=== PATIENT | male | born 1945 | race Caucasian/White ===

== ENCOUNTER 2021-01-10 12:46 | Emergency (ER) | payer MEDICARE, OTHER, SELFPAY ==
[2021-01-10 13:15] VITALS: BP 118/69; PULSE 56; RESP 18; TEMP 36.6; O2SAT 99; BMI 31.9
--- NOTE | 2021-01-10 13:16 | CT_ITS ---
PROCEDURE: CT THORACIC SPINE WO CON CLINICAL HISTORY: pain COMPARISON: No exams were available for comparison TECHNIQUE: Axial images obtained with sagittal and coronal reformats. All CT scans at the facility use one or more dose reduction, viz: automated exposure control, ma/kV adjustment per patient size (including targeted exams where dose is matched to indication, i.e. head), or iterative reconstruction technique. FINDINGS: Normal alignment. No acute fracture or dislocation is evident. No lytic or blastic change. There is mild multilevel thoracic spondylosis with mild degenerative disc disease. Multilevel bridging osteophytes/syndesmophytes. No bony canal stenosis. No paraspinal mass. Mild thoracic scoliosis convex right. Mild ectasia of the ascending aorta at 4 cm. IMPRESSION: Multilevel thoracic spondylosis as described above. No acute fracture or dislocation. Mild ectasia of the ascending thoracic aorta at 4 cm. Dictated by: Ramon Ribeiro MD 01/10/2021 14:31 Ramon Ribeiro MD in [facility] 01/10/2021 14:31
--- NOTE | 2021-01-10 13:16 | CT_ITS ---
PROCEDURE: CT LUMBAR SPINE WO CON CLINICAL HISTORY: pain COMPARISON: No exams were available for comparison TECHNIQUE: Axial images obtained with sagittal and coronal reformats. All CT scans at the facility use one or more dose reduction, viz: automated exposure control, ma/kV adjustment per patient size (including targeted exams where dose is matched to indication, i.e. head), or iterative reconstruction technique. FINDINGS: There is normal alignment. No acute fracture or dislocation. No lytic or blastic change. L1-L2: Concentric bulging disc. Small anterior osteophyte on the left. L2-L3: Concentric bulging disc with moderate facet and ligamentum hypertrophy. The ligamentum hypertrophic changes are partially calcified on the left. There is bilateral lateral recess narrowing left greater than right . L3-L4: Concentric bulging disc with facet and ligamentum hypertrophic change with bilateral lateral recess narrowing and mild bilateral foraminal narrowing. L4-5: Degenerative disc disease with concentric bulging disc with moderate to severe facet hypertrophic change with moderate bilateral lateral recess narrowing and mild bilateral foraminal narrowing. L5-S1: Severe degenerative disc disease with facet and ligamentum hypertrophy with mild bilateral foraminal narrowing. Anterior osteophytes are present at multiple levels. There is fusion of the SI joints on both sides. There is mild fusiform dilatation of the infrarenal abdominal aorta at the L3 level at 3 cm. IMPRESSION: Multilevel lumbar spondylosis. Please see above for detailed description at each level. No acute fracture or dislocation. 3 cm infrarenal abdominal aortic aneurysm Fusion of the SI joints bilaterally. Dictated by: Ramon Ribeiro MD 01/10/2021 14:50 Ramon Ribeiro MD in [facility] 01/10/2021 14:50
--- NOTE | 2021-01-10 13:24 | PC.NURSE ---
pt in radiology
--- NOTE | 2021-01-10 13:24 | PC.NURSE ---
Pt went to RAD
[2021-01-10 13:28] LABS: Microscopic, Urine URINE MICROSCOPIC (MICROSCOPIC)
[2021-01-10 13:33] LABS: Appearance,Urine CLEAR (Clear); Blood, Urine Negative (Negative); Color,Urine AMBER (Yellow); Glucose,Urine (UA) Negative (Negative); Ketones,Urine TRACE (Negative); Leukocyte Esterase,Urine Negative (Negative); Nitrate,Urine Negative (Negative); Protein,Urine 2+ (Negative); Specific Gravity, Urine >= 1.030 (1.005-1.030)
--- NOTE | 2021-01-10 13:35 | PC.NURSE ---
Spoke with sebastian malin RPH at [facility] he stated that pts allergies are Vanc, Crestor, simvastatin, lisinopril, citalopram, fluoxitine.
[2021-01-10 13:48] LABS: Bilirubin,Urine 1+ (Negative)
[2021-01-10 14:12] LABS: Basophils # 0.1 K/mm3 (0-0.2); Basophils % 0.6 % (0.1-2.0); Eosinophils # 0.2 K/mm3 (0.0-0.4); Eosinophils % 2.5 % (0.1-12.0); Hematocrit 43.9 % (42.0-52.0); Hemoglobin 14.8 g/dL (14.1-18.0); Lymphocytes % 24.1 % (10-50); Mean Corpuscular HGB Conc 33.9 g/dL (31.8-35.4); Mean Corpuscular Hemoglobin 29.7 pg (27.0-31.2); Mean Corpuscular Volume 87.6 fl (80-94); Monocytes # 0.5 K/mm3 (0.1-1.0); Monocytes % 6.7 % (1.7-9.3); Neutrophils # 5.4 K/mm3 (1.8-7.8); Neutrophils % 66.1 % (37.0-80.0); Platelet Count 231 K/mm3 (142-424); Red Blood Count 5.01 M/mm3 (4.60-6.20); Red Cell Distribution Width 15.7 % (11.5-17.5); White Blood Count 8.1 K/mm3 (4.8-10.8)
[2021-01-10 14:23] LABS: Chloride 106 mmol/L (98-107); Potassium 4.2 mmoL/L (3.5-5.1); Sodium 143 mmol/L (136-145)
[2021-01-10 14:25] LABS: Alanine Aminotransferase 13 U/L (12-78); Alkaline Phosphatase 54 U/L (38-126); Aspartate Amino Transferase 29 U/L (17-59); Bilirubin,Total 1.1 mg/dl (0.2-1.3); Blood Urea Nitrogen 25 mg/dl (9-20); Creatinine Clearance Estimated 54 mL/min (50-200); Estimated Glomerular Filt Rate 46 ml/min (>60); GFR (African American) 55 ML/MIN (>60)
[2021-01-10 14:26] LABS: Albumin Level 4.7 g/dl (3.5-5.0); Albumin/Globulin Ratio 1.7 (1.1-1.8); Anion Gap 14.2 mEq/L (5-15); Carbon Dioxide 27 mmol/L (22.0-30.0); Globulin 2.7 g/dL (1.3-3.2); Glucose 109 mg/dl (74-100); Total Protein,Serum 7.4 g/dl (6.3-8.2)
--- NOTE | 2021-01-10 15:34 | PC.NURSE ---
Pt is in room resting
--- NOTE | 2021-01-10 15:48 | HMH.EDBACK ---
ED Disposition Clinical Impression: Strain of lumbar region Qualifiers: Encounter type: initial encounter Qualified Code(s): S39.012A - Strain of muscle, fascia and tendon of lower back, initial encounter Thoracic back pain Qualifiers: Chronicity: acute Back pain laterality: bilateral Qualified Code(s): M54.6 - Pain in thoracic spine Disposition: Home, Self-Care Condition on Discharge: Good Instructions: DI for Low Back Pain Prescriptions: methocarbamoL [Methocarbamol] 750 mg PO QID 7 Days #28 tab Transmission Status: Pending to [facility]/pharmacy #[id number] Referrals: Faraz Skaggs [Primary Care Provider] - - Critical Care Critical Care Time: No Attestation: On 01/10/21, the high probability of a clinically significant, sudden or life threatening deterioration of the following system(s) required my full and direct attention, intervention and personal management. The time I documented below is in addition to time spent performing reported procedures but includes the following listed in this critical care notation. Medical Decision Making - Medical Records Medical records reviewed: Yes: I reviewed the patient's medical records. - Santana Inquiry Pt receiving controlled substance: Yes Santana was queried for this patient: No Reason not queried -: Emergent pt cond-no time Risks and benefits of using a controlled substance: were discussed with pt by me Vital Signs: 01/10/21 13:15 Temperature 97.9 F Temperature Source Oral Pulse Rate [Right Radial] 56 L Respiratory Rate 18 Blood Pressure [Right Arm] 118/69 Blood Pressure Mean [Right Arm] 85 Blood Pressure Source [Right Arm] Automatic Cuff Blood Pressure Position [Right Arm] Supine 02 Sat by Pulse Oximetry 99 Oxygen Delivery Method Room Air - Lab Data Lab Results 01/10/21 12:55: Urine Color Anna, Urine Appearance Clear, Urine pH 6.0, Ur Specific [place] >= 1.030, Urine Protein 2+, Urine Glucose (UA) Negative, Urine Ketones Trace, Urine Blood Negative, Urine Nitrate Negative, Urine Bilirubin 1+ A, Urine Urobilinogen 1.0, Ur Leukocyte Esterase Negative, Urine WBC 3-5, Ur Squamous Epith Cells 3-5 01/10/21 14:02: WBC 8.1, RBC 5.01, Hgb 14.8, Hct 43.9, MCV 87.6, MCH 29.7, MCHC 33.9, RDW 15.7, Plt Count 231, MPV 9.0, Neut % (Auto) 66.1, Lymph % (Auto) 24.1, [place] % (Auto) 6.7, Eos % (Auto) 2.5, Baso % (Auto) 0.6, Neut # (Auto) 5.4, Lymph # (Auto) 2.0, [place] # (Auto) 0.5, Eos # (Auto) 0.2, Baso # (Auto) 0.1 01/10/21 14:02: Sodium 143, Potassium 4.2, Chloride 106, Carbon Dioxide 27, Anion Gap 14.2, BUN 25 H, Creatinine 1.50 H, Estimated Creat Clear 54, Estimated GFR 46 L, Est GFR ( Amer) 55 L, Glucose 109 H, Calcium 10.0, Total Bilirubin 1.1, AST 29, ALT 13, Alkaline Phosphatase 54, Total Protein 7.4, Albumin 4.7, Globulin 2.7, Albumin/Globulin Ratio 1.7 Result diagrams: 01/10/21 14:02 01/10/21 14:02 Orders (Tests/Meds): ED MEDICATIONS Discontinued Medications Generic Name Dose Route Start Last Admin Trade Name Freq PRN Reason Stop Dose Admin Morphine Sulfate 4 mg 01/10/21 13:16 01/10/21 14:09 Morphine 4mg/Ml Syringe IV 01/10/21 13:17 4 mg ONCE ONE Administration Morphine Sulfate 4 mg 01/10/21 15:54 Morphine 4mg/Ml Syringe IV 01/10/21 15:55 ONCE ONE Ondansetron HCl 4 mg 01/10/21 13:16 01/10/21 14:09 Ondansetron 4mg/2ml Vial IV 01/10/21 13:17 4 mg ONCE ONE Administration - CT Data CT Scan: T-Spine, L-Spine Time Received: 15:[address] Reviewed: Yes: I have reviewed the patient's CT results, I have viewed the radiologist's interpretation Findings Narrative: IMPRESSION: Multilevel thoracic spondylosis as described above. No acute fracture or dislocation. Mild ectasia of the ascending thoracic aorta at 4 cm. IMPRESSION: Multilevel lumbar spondylosis. Please see above for detailed description at each level. No acute fracture or dislocation. 3 cm infrarenal abdominal aortic aneurysm Fusion of th
[2021-01-10 16:44] VITALS: BP 127/77; PULSE 65; RESP 18; TEMP 36.8; O2SAT 98
== END 2021-01-10 16:44 | disposition home or self-care (01) ==
PROVIDERS: Emergency Provider Emergency Medicine; PCP Internal Medicine
DX: S39.012A Strain of muscle, fascia and tendon of lower back, initial encounter (principal); W01.0XXA Fall on same level from slipping, tripping and stumbling without subsequent striking against object, initial encounter; Y92.019 Unspecified place in single-family (private) house as the place of occurrence of the external cause; Z86.73 Personal history of transient ischemic attack (TIA), and cerebral infarction without residual deficits
CPT/HCPCS: 72128; 72131; 80053; 81001; 85025; 96367; 96374; 99283; J2405

== ENCOUNTER 2021-04-24 16:11 | Emergency (ER) | payer MEDICARE, OTHER, SELFPAY ==
[2021-04-24 16:14] VITALS: BP 142/67; PULSE 90; RESP 17; TEMP 36.7; O2SAT 100; BMI 28.7
--- NOTE | 2021-04-24 16:26 | ECG_ITS ---
APPROVED REPORT Exam: Resting ECG HR:80 bpm ECG Measurements Heart Rate 80 AXES QRSd 91 QRS -4 QT 389 T 134 QTc 425 Conclusion ATRIAL FIBRILLATION WITH ABERRANT CONDUCTION OR VENTRICULAR PREMATURE COMPLEXES ST DEVIATION AND MODERATE T-WAVE ABNORMALITY, CONSIDER LATERAL ISCHEMIA [-0.1+ mV T-WAVE IN I/aVL/V5/V6] ABNORMAL ECG UNCONFIRMED REPORT Electronically signed by : Emre Grady MD 04/25/2021 07:41:26
--- NOTE | 2021-04-24 16:26 | XR_ITS ---
PROCEDURE INFORMATION: Exam: XR Chest Exam date and time: 04/24/2021 4:26 PM Age: 75 years old Clinical indication: Shortness of breath; Additional info: AMS TECHNIQUE: Imaging protocol: XR of the chest. Views: 1 view. COMPARISON: CT THORACIC SPINE WO CON 01/10/2021 1:26 PM FINDINGS: Lungs: No focal pneumonia or pneumothorax. Pleural spaces: There are no pleural effusions present. Heart/Mediastinum: Heart demonstrates mild diffuse enlargement. Bones/joints: Unremarkable. IMPRESSION: 1. Mild cardiomegaly. 2. No focal pneumonia or pneumothorax.
[2021-04-24 16:31] VITALS: BP 129/72; PULSE 78; RESP 18; O2SAT 99
[2021-04-24 16:40] LABS: Basophils # 0.1 K/mm3 (0-0.2); Basophils % 1.1 % (0.1-2.0); Eosinophils # 0.1 K/mm3 (0.0-0.4); Eosinophils % 0.5 % (0.1-12.0); Hematocrit 40.6 % (42.0-52.0); Hemoglobin 13.8 g/dL (14.1-18.0); Lymphocytes # 1.4 K/mm3 (0.7-4.5); Lymphocytes % 13.6 % (10-50); Mean Corpuscular Hemoglobin 30.4 pg (27.0-31.2); Mean Corpuscular Volume 89.2 fl (80-94); Mean Platelet Volume 8.9 fl (7.4-10.4); Monocytes # 0.9 K/mm3 (0.1-1.0); Monocytes % 8.9 % (1.7-9.3); Neutrophils # 7.8 K/mm3 (1.8-7.8); Neutrophils % 75.8 % (37.0-80.0); Platelet Count 249 K/mm3 (142-424); Red Blood Count 4.55 M/mm3 (4.60-6.20); White Blood Count 10.2 K/mm3 (4.8-10.8)
[2021-04-24 16:41] LABS: Chloride 106 mmol/L (98-107); Sodium 139 mmol/L (136-145)
[2021-04-24 16:42] LABS: Potassium 3.7 mmoL/L (3.5-5.1)
[2021-04-24 16:44] LABS: Alanine Aminotransferase 19 U/L (12-78); Albumin Level 4.1 g/dl (3.5-5.0); Albumin/Globulin Ratio 1.4 (1.1-1.8); Alkaline Phosphatase 46 U/L (38-126); Anion Gap 11.7 mEq/L (5-15); Aspartate Amino Transferase 22 U/L (17-59); Bilirubin,Total 1.1 mg/dl (0.2-1.3); Blood Urea Nitrogen 37 mg/dl (9-20); Carbon Dioxide 25 mmol/L (22.0-30.0); Creatinine Clearance Estimated 51 mL/min (50-200); Estimated Glomerular Filt Rate 39 ml/min (>60); GFR (African American) 48 ML/MIN (>60); Globulin 2.9 g/dL (1.3-3.2)
[2021-04-24 16:45] LABS: Calcium 8.1 mg/dl (8.4-10.2); Glucose 99 mg/dl (74-100)
--- NOTE | 2021-04-24 16:56 | HMH.EDGENADL ---
ED Disposition Clinical Impression: Abdominal pain Qualifiers: Abdominal location: generalized Qualified Code(s): R10.84 - Generalized abdominal pain Disposition: Home, Self-Care Condition on Discharge: Good Instructions: DI for Abdominal Pain-Adult Prescriptions: Dicyclomine HCl [Bentyl 10mg capsule] 10 mg PO TID PRN #15 cap PRN Reason: Cramping Transmission Status: Pending to [facility]/pharmacy #[id number] Referrals: Provider,Referral, [Primary Care Provider] - - Critical Care Critical Care Time: No Attestation: On 04/24/21, the high probability of a clinically significant, sudden or life threatening deterioration of the following system(s) required my full and direct attention, intervention and personal management. The time I documented below is in addition to time spent performing reported procedures but includes the following listed in this critical care notation. Medical Decision Making - Medical Records Medical records reviewed: Yes: I reviewed the patient's medical records. - Santana Inquiry Pt receiving controlled substance: No Vital Signs: 04/24/21 16:14 04/24/21 16:31 04/24/21 17:01 Temperature 98.1 F Temperature Source Oral Pulse Rate 78 66 Pulse Rate [Left Radial] 90 Respiratory Rate 17 18 18 Blood Pressure 129/72 145/74 H Blood Pressure [Right Arm] 142/67 H Blood Pressure Mean 78 82 Blood Pressure Mean [Right Arm] 92 02 Sat by Pulse Oximetry 100 99 100 Oxygen Delivery Method Room Air 04/24/21 17:31 04/24/21 18:01 Temperature Temperature Source Pulse Rate 70 76 Pulse Rate [Left Radial] Respiratory Rate 18 18 Blood Pressure 155/83 H 161/79 H Blood Pressure [Right Arm] Blood Pressure Mean 107 117 Blood Pressure Mean [Right Arm] 02 Sat by Pulse Oximetry 98 98 Oxygen Delivery Method - Lab Data Lab Results 04/24/21 16:12: WBC 10.2, RBC 4.55 L, Hgb 13.8 L, Hct 40.6 L, MCV 89.2, MCH 30.4, MCHC 34.0, RDW 15.0, Plt Count 249, MPV 8.9, Neut % (Auto) 75.8, Lymph % (Auto) 13.6, [place] % (Auto) 8.9, Eos % (Auto) 0.5, Baso % (Auto) 1.1, Neut # (Auto) 7.8, Lymph # (Auto) 1.4, [place] # (Auto) 0.9, Eos # (Auto) 0.1, Baso # (Auto) 0.1 04/24/21 16:12: Sodium 139, Potassium 3.7, Chloride 106, Carbon Dioxide 25, Anion Gap 11.7, BUN 37 H, Creatinine 1.70 H, Estimated Creat Clear 51, Estimated GFR 39 L, Est GFR ( Amer) 48 L, Glucose 99, Calcium 8.1 L, Total Bilirubin 1.1, AST 22, ALT 19, Alkaline Phosphatase 46, Total Protein 7.0, Albumin 4.1, Globulin 2.9, Albumin/Globulin Ratio 1.4 04/24/21 16:12: Troponin I < 0.01 Result diagrams: 04/24/21 16:12 04/24/21 16:12 Orders (Tests/Meds): ED MEDICATIONS Generic Name Dose Route Start Last Admin Trade Name Freq PRN Reason Stop Dose Admin Sodium Chloride 10 ml 04/24/21 16:26 Sodium Chloride 0.9% 10ml Flush Syringe IV 05/24/21 16:25 NEEDED PRN Maintain IV Site ORDERS Category Date Time Status Troponin I Q3H Lab 04/24/21 19:45 Ordered Troponin I Q3H Lab 04/24/21 22:45 Ordered Medical Decision Narrative: ekg by me afib 80, qrs narrow, no st elev reeval 1822 appears well, vss, abd soft, says pain is resolved General Adult HPI - General Chief complaint: PAIN Stated complaint: chest pain Time Seen by Provider: 04/24/21 16:30 Mode of Arrival: Ambulatory Limitations: No Limitations Description of Symptoms (Recalled from ER Triage Doc. by RN): pt to ed c/o generalized pain and weakness. pt states he hurts all over but will not give specific points of origin. pt has no other complaints. - History of Present Illness HPI narrative: c/o abd pain, intermittent, crampy, all over 3 days, resolved now Radiation: non-radiation Severity: moderate Consistency: intermittent Relieving factors: none Exacerbating factors: none Associated symptoms: denies other symptoms Treatments prior to arrival: none - Related Data Previous Rx's Medication Instructions Recorded methocarbamoL [Me
[2021-04-24 17:01] VITALS: BP 145/74; PULSE 66; RESP 18; O2SAT 100
[2021-04-24 17:13] LABS: Troponin I < 0.01 ng/ml (0.00-0.034)
[2021-04-24 17:31] VITALS: BP 155/83; PULSE 70; RESP 18; O2SAT 98
[2021-04-24 18:01] VITALS: BP 161/79; PULSE 76; RESP 18; O2SAT 98
[2021-04-24 18:51] VITALS: BP 161/79; PULSE 84; RESP 20; TEMP 36.9; O2SAT 98
== END 2021-04-24 18:52 | disposition home or self-care (01) ==
PROVIDERS: Emergency Provider Emergency Medicine
DX: R07.9 Chest pain, unspecified (principal); R10.84 Generalized abdominal pain; R53.1 Weakness; Z88.1 Allergy status to other antibiotic agents; Z88.3 Allergy status to other anti-infective agents; Z88.8 Allergy status to other drugs, medicaments and biological substances
CPT/HCPCS: 71045; 80053; 84484; 85025; 93005; 99284

== ENCOUNTER 2021-11-28 14:50 | Emergency (ER) | payer MEDICARE, OTHER, SELFPAY ==
[2021-11-28 15:06] VITALS: BP 144/68; PULSE 64; RESP 18; TEMP 36.9; O2SAT 100; BMI 28.2
--- NOTE | 2021-11-28 15:16 | CT_ITS ---
FINAL REPORT TECHNIQUE: Axial images were obtained from the lung apex to the mid abdomen by computed tomography. Coronal reformatted images were obtained. This study was performed with techniques to keep radiation doses as low as reasonably achievable, (ALARA). Individualized dose reduction techniques using automated exposure control or adjustment of mA and/or kV according to the patient''s size were employed. CLINICAL HISTORY: fall, chest pain FINDINGS: There is no axillary adenopathy. There is no hilar or mediastinal adenopathy. There is cardiomegaly. There are severe coronary artery calcifications. There is no pericardial or pleural effusion. Limited images of the upper abdomen are unremarkable. No suspicious infiltrate or nodule is identified. There is mild dependent atelectasis. There is a calcified granuloma in the left lung base. There is no pneumothorax. IMPRESSION: Mild dependent atelectasis. No pneumothorax. Reviewed, Interpreted and Dictated by Adrian Nixon III, MD Transcribed by Laura García Authenticated and [facility]
--- NOTE | 2021-11-28 15:16 | CT_ITS ---
FINAL REPORT CLINICAL HISTORY: fall, head injury FINDINGS: Axial CT images of the cervical spine were obtained without contrast. Sagittal and coronal reformatted images were also obtained. This study was performed with techniques to keep radiation doses as low as reasonably achievable (ALARA). Individualized dose reduction techniques using automated exposure control or adjustment of mA and/or kV according to the patient''s size were employed. There is no evidence of fracture or dislocation. The bony alignment is normal. There are moderate degenerative changes with multilevel osteophytes and multilevel neural foraminal narrowing. There is no evidence of canal stenosis. No paraspinous soft tissue abnormality is seen. Limited images of the upper thorax are unremarkable. A calcification is noted in the right thyroid lobe. IMPRESSION: No fracture or acute bony abnormality identified. Reviewed, Interpreted and Dictated by Adrian Nixon III, MD Transcribed by Laura García Authenticated and [facility]
--- NOTE | 2021-11-28 15:16 | CT_ITS ---
FINAL REPORT CLINICAL HISTORY: fall, head injury FINDINGS: Axial images of the head were obtained without contrast. Coronal reformatted images were also obtained. This study was performed with techniques to keep radiation doses as low as reasonably achievable (ALARA). Individualized dose reduction techniques using automated exposure control or adjustment of mA and/or kV according to the patient's size were employed. There is generalized age-appropriate atrophy. Periventricular low-attenuation areas are seen consistent with mild chronic ischemic changes. There is left hemisphere encephalomalacia. There is no evidence of intracranial hemorrhage or mass. There is no evidence of acute infarct. There is no evidence of shift of the midline structures. No skull abnormality is seen on the bone window images. IMPRESSION: Atrophy and moderate periventricular chronic ischemic changes. No acute intracranial abnormality identified. Reviewed, Interpreted and Dictated by Adrian Nixon III, MD Transcribed by Laura García Authenticated and [facility]
--- NOTE | 2021-11-28 15:17 | XR_ITS ---
FINAL REPORT CLINICAL HISTORY: fall, pain COMPARISON: 04/24/2021 FINDINGS: A single portable view of the chest was obtained. There is cardiomegaly. The mediastinum is within normal limits. No acute pulmonary abnormality is identified. The bony thorax is intact. IMPRESSION: No active cardiopulmonary disease. Reviewed, Interpreted and Dictated by Adrian Nixon III, MD Transcribed by Laura García Authenticated and [facility]
--- NOTE | 2021-11-28 15:17 | XR_ITS ---
FINAL REPORT CLINICAL HISTORY: fall, pain FINDINGS: SINGLE VIEW PELVIS: A single view of the pelvis was obtained. There is no acute fracture or dislocation. There are mild degenerative changes. There are mild vascular calcifications. IMPRESSION: No acute bony abnormality. Reviewed, Interpreted and Dictated by Adrian Nixon III, MD Transcribed by Laura García Authenticated and [facility]
--- NOTE | 2021-11-28 15:18 | HMH.EDGENADL ---
Discharge Plan Disposition Patient Disposition: Home, Self-Care Condition: Good Prescriptions Prescriptions: No Action dicyclomine 10 MG capsule 10 mg PO TID PRN (Reason: Cramping) Qty: 15 0RF methocarbamol 750 MG tablet 750 mg PO QID 7 Days Qty: 28 0RF Referrals Follow up/Referrals: Provider,Referral, [Primary Care Provider] - See instructions Activity Restrictions/Add. Instructions Additional Instructions/Restrictions: You were evaluated in the emergency department today after a fall. Your laceration was repaired with absorbable sutures. Please keep the area clean and dry. Do not submerge in any water. Take Tylenol at home as needed for pain. Follow-up with your primary care provider over the next 48 hours. Return to the emergency department for any new or worsening symptoms. Clinical Impressions Clinical Impression: Fall from ground level, Contusion of rib on left side Forehead laceration Qualifiers: Encounter type: initial encounter Qualified Code(s): S01.81XA - Laceration without foreign body of other part of head, initial encounter Instructions Patient Instructions: DI for Laceration Repair, DI for Rib Contusion, How to Prevent Falls Discharge ED Provider: Anna Brice General Adult HPI General Chief complaint: Wound/Laceration Stated complaint: AO 11/28@home@1400 lac on forhead Time Seen by Provider: 11/28/21 14:59 Mode of Arrival: Ambulatory Source of Information: Patient and Relative Limitations: No Limitations Description of Symptoms (Recalled from ER Triage Doc. by RN): Pt presents with lac to Lt forehead after tripping and falling on [place] History of Present Illness HPI narrative: This patient is a 76-year-old male with a history of prior CVA presenting with his caregiver for evaluation after a ground-level fall. According to the patient's caregiver, he was walking on the sidewalk when he tripped, striking his face on the ground. Patient currently complains of left-sided head pain and moderate, sharp chest wall pain worse with inspiration. He states that he was not experiencing any chest pain prior to the fall. He did not lose consciousness. He has had no vomiting since then. He is currently at his baseline mental status. He has no vision changes, numbness, tingling, unilateral weakness, shortness of breath, abdominal pain, extremity pain, or other concerns. He was ambulatory after the fall. He is unsure when his last tetanus shot was, however he and his caregiver declined tetanus shot today. He was well prior to the fall. Related Data Previous Rx's Medication Instructions Recorded methocarbamol 750 mg tablet 750 mg PO QID 7 days #28 tabs 01/10/21 dicyclomine 10 mg capsule 10 mg PO TID PRN Cramping #15 caps 04/24/21 Allergies Allergy/AdvReac Type Severity Reaction Status Date / Time lisinopril Allergy Mild Verified 01/10/21 13:44 citalopram Allergy Verified 01/10/21 13:46 fluoxetine [From Prozac] Allergy Verified 01/10/21 13:46 rosuvastatin [From Crestor] Allergy Verified 01/10/21 13:46 simvastatin Allergy Verified 01/10/21 13:46 vancomycin Allergy Verified 01/10/21 13:43 PFSH PFSH Social History Smoking Status: Never smoker alcohol intake: never current occupational status: retired Travel in the last 8 weeks: None ROS Obtained: Yes All systems reviewed & no additional complaints except as documented 14 point review of systems obtained and negative except otherwise mentioned in HPI. Physical Exam General General appearance: alert and in no apparent distress Head Head exam: other (1 cm laceration to the left forehead without significant surrounding swelling) Eye Eye exam: Present normal appearance, PERRL and EOMI ENT ENT exam: Present normal exam and normal oropharynx Neck Neck exam: Present normal inspection; Absent tenderness Chest Chest inspection: Present symmetric chest wall ri
[2021-11-28 16:00] VITALS: BP 139/83; PULSE 53; RESP 20; O2SAT 95
--- NOTE | 2021-11-28 16:10 | ECG_ITS ---
APPROVED REPORT Exam: Resting ECG HR:67 bpm ECG Measurements Heart Rate 67 AXES QRSd 98 QRS -7 QT 430 T 83 QTc 446 Conclusion ATRIAL FIBRILLATION NONSPECIFIC ST & T-WAVE ABNORMALITY ABNORMAL RHYTHM ECG UNCONFIRMED REPORT Electronically signed by : Emre Grady MD 11/29/2021 17:15:11
[2021-11-28 16:30] VITALS: BP 151/77; PULSE 74; RESP 20; O2SAT 98
[2021-11-28 17:00] VITALS: BP 159/102; PULSE 71; RESP 20; O2SAT 95
[2021-11-28 18:19] VITALS: BP 141/76; PULSE 78; RESP 18; TEMP 36.7; O2SAT 97
== END 2021-11-28 18:20 | disposition home or self-care (01) ==
PROVIDERS: Emergency Provider Emergency Medicine
DX: S20.212A Contusion of left front wall of thorax, initial encounter (principal); S01.81XA Laceration without foreign body of other part of head, initial encounter; W18.30XA Fall on same level, unspecified, initial encounter; Y92.480 Sidewalk as the place of occurrence of the external cause
CPT/HCPCS: 12011; 70450; 71045; 71250; 72125; 72170; 93005; 99285

== ENCOUNTER 2022-06-13 17:38 | Emergency (ER) | payer MEDICARE, OTHER, SELFPAY ==
[2022-06-13 17:38] VITALS: BP 146/77; PULSE 85; RESP 18; TEMP 37.1; O2SAT 100; BMI 29.8
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
[2022-06-13 18:01] VITALS: BP 139/81; PULSE 76; O2SAT 100
--- NOTE | 2022-06-13 18:32 | HMH.EDGENADL ---
Discharge Plan Disposition Patient Disposition: Home, Self-Care Chief Complaint: Wound/Laceration Prescriptions Prescriptions: No Action dicyclomine 10 MG capsule 10 mg PO TID PRN (Reason: Cramping) Qty: 15 0RF methocarbamol 750 MG tablet 750 mg PO QID 7 Days Qty: 28 0RF Referrals Follow up/Referrals: Provider,Referral, [Primary Care Provider] - See instructions Activity Restrictions/Add. Instructions Additional Instructions/Restrictions: Return for removal of the meghna within 7 days. Return for headache vomiting or any other concerns within the next 8 hours follow-up with your primary care physician within the next few days Clinical Impressions Clinical Impression: Complex laceration of scalp Instructions Patient Instructions: DI for Laceration Repair Discharge ED Provider: Guillermo Pastrana General Adult HPI General Chief complaint: Wound/Laceration Stated complaint: laceration Time Seen by Provider: 06/13/22 18:00 Mode of Arrival: EMS Source of Information: Spouse Limitations: Language Barrier Description of Symptoms (Recalled from ER Triage Doc. by RN): c/o laceration to right forehead after a board hit him in the head. Pt denies any loc or other injuries at this time. History of Present Illness HPI narrative: 76-year-old male with history of dementia presents with head injury. He ran into a 4 x 4 and has a laceration to his head. No LOC or vomiting per family. Moving all extremities. He apparently is on Eliquis as well. Related Data Previous Rx's Medication Instructions Recorded methocarbamol 750 mg tablet 750 mg PO QID 7 days #28 tabs 01/10/21 dicyclomine 10 mg capsule 10 mg PO TID PRN Cramping #15 caps 04/24/21 Allergies Allergy/AdvReac Type Severity Reaction Status Date / Time lisinopril Allergy Mild Verified 01/10/21 13:44 citalopram Allergy Verified 01/10/21 13:46 fluoxetine [From Prozac] Allergy Verified 01/10/21 13:46 rosuvastatin [From Crestor] Allergy Verified 01/10/21 13:46 simvastatin Allergy Verified 01/10/21 13:46 vancomycin Allergy Verified 01/10/21 13:43 [facility] Disclaimer: The information contained in this section may have been updated after the patient was seen, as this information can be updated by other users. Social History (Updated 11/28/21 @ 20:32 by Anna Brice DO) Smoking Status: Former smoker alcohol intake: never current occupational status: retired Travel in the last 8 weeks: None ROS Obtained: Yes unobtainable due to mental condition Physical Exam General General appearance: alert and in no apparent distress Head Head exam: other (4 cm laceration to forehead no active bleeding) Eye Eye exam: Present PERRL and EOMI ENT ENT exam: Present normal exam and normal oropharynx Neck Neck exam: Present normal inspection; Absent tenderness Chest Chest inspection: Present symmetric chest wall rise Respiratory Respiratory exam: Present normal lung sounds bilaterally; Absent respiratory distress Cardiovascular Cardiovascular exam: Present regular rate and normal rhythm Abdominal Exam Abdominal exam: Present soft; Absent distention, tenderness, guarding, rebound, Sims's sign or tenderness at McBurney's Point Rectal Exam Rectal exam: Present deferred Back Exam Back exam: Present normal inspection Neurological Exam Neurological exam: Present alert and oriented X3 Psychiatric Psychiatric exam: Present normal affect and normal mood Skin Skin exam: Present warm, dry and intact Lymphatic Lymphatic Findings: no adenopathy Medical Decision Making Medical Records Medical records reviewed: Yes I reviewed the patient's medical records. Santana Inquiry Pt receiving controlled substance: No Santana was queried for this patient: No Vital Signs: 06/13/22 17:38 06/13/22 18:01 06/13/22 18:33 Temperature 98.7 F Temperature Source Oral Pulse Rate 76 85 Pulse Rate [Left Radial] 85 Respiratory Rate 18 20 Blood Pressur
[2022-06-13 18:33] VITALS: BP 141/89; PULSE 85; RESP 20; O2SAT 99
[2022-06-13 19:29] VITALS: BP 137/78; PULSE 80; RESP 16; TEMP 37.1; O2SAT 99
== END 2022-06-13 19:30 | disposition home or self-care (01) ==
PROVIDERS: Emergency Provider Emergency Medicine
DX: S01.01XA Laceration without foreign body of scalp, initial encounter (principal); W22.8XXA Striking against or struck by other objects, initial encounter; Z87.891 Personal history of nicotine dependence
CPT/HCPCS: 12002; 70450; 72125; 99283; 99285

== ENCOUNTER 2022-06-21 18:25 | Emergency (ER) | payer MEDICARE, OTHER, SELFPAY ==
[2022-06-21 18:30] VITALS: BP 116/74; PULSE 86; RESP 19; TEMP 36.6; O2SAT 99; BMI 29.0
[2022-06-21 18:38] VITALS: BP 116/74; PULSE 86; RESP 19; TEMP 36.6; O2SAT 99
== END 2022-06-21 18:40 | disposition home or self-care (01) ==
PROVIDERS: Emergency Provider Nurse Practitioner Family
DX: S01.01XA Laceration without foreign body of scalp, initial encounter (principal); Z48.02 Encounter for removal of sutures

== ENCOUNTER 2022-09-15 17:06 | Observation (INO) | payer MEDICARE, OTHER, SELFPAY ==
[2022-09-15] VITALS (8 sets, daily range): BP systolic 141–153; BP diastolic 70–90; PULSE 60–90; RESP 16–18; TEMP 36.6–36.9; O2SAT 96–97; BMI 31.5
--- NOTE | 2022-09-15 17:34 | PC.NURSE ---
monica murry at bedside.
--- NOTE | 2022-09-15 17:35 | XR_ITS ---
PROCEDURE INFORMATION: Exam: XR Chest Exam date and time: 09/15/2022 5:37 PM Age: 77 years old Clinical indication: Tachypnea; Additional info: AMS tachypnea TECHNIQUE: Imaging protocol: Radiologic exam of the chest. Views: 1 view. COMPARISON: CR XR CHEST PORTABLE 11/28/2021 3:46 PM FINDINGS: Lungs: Increased prominence of the central pulmonary vasculature. Pleural spaces: Possible small left pleural effusion. No pneumothorax. Heart/Mediastinum: Cardiomegaly. Bones/joints: Unremarkable. IMPRESSION: 1. Increased prominence of the central pulmonary vasculature which may be seen with pulmonary edema. Possible small left pleural effusion. 2. Cardiomegaly.
--- NOTE | 2022-09-15 17:35 | ECG_ITS ---
APPROVED REPORT Exam: Resting ECG HR:79 bpm ECG Measurements Heart Rate 79 AXES QRSd 92 QRS 35 QT 379 T 91 QTc [address] DEVIATION AND MODERATE T-WAVE ABNORMALITY, CONSIDER LATERAL ISCHEMIA [-0.1+ mV T-WAVE IN I/aVL/V5/V6] ABNORMAL ECG UNCONFIRMED REPORT Electronically signed by : Emre Grady MD 09/17/2022 20:54:30
[2022-09-15 17:57] LABS: VBG Base Excess -0.7 mmol/L (-2.4-2.3); VBG HCO3 24.5 mmol/L (23-30); VBG Oxygen Saturation 69.9 % (50-70); VBG PCO2 42.4 mmol/L (35-51); VBG PH 7.38 mmol/L (7.31-7.41); VBG PO2 36.7 mmol/L (28-40); VBG Total CO2 25.8 mmol/L (23-27)
--- NOTE | 2022-09-15 18:01 | HMH.EDGENADL ---
Discharge Plan Disposition Patient Disposition: Admitted Chief Complaint: Altered Mental Status Prescriptions Prescriptions: No Action dicyclomine 10 MG capsule 10 mg PO TID PRN (Reason: Cramping) Qty: 15 0RF methocarbamol 750 MG tablet 750 mg PO QID 7 Days Qty: 28 0RF Referrals Follow up/Referrals: Provider,Referral, [Primary Care Provider] - See instructions Clinical Impressions Clinical Impression: CHF (congestive heart failure), Altered mental status, Constipation, Non-ST elevation GA (NSTEMI) Instructions Patient Instructions: DI for Altered Mental Status Discharge ED Provider: Devon Todd General Adult HPI General Chief complaint: Altered Mental Status Stated complaint: weak, decline in mental status BP 145/64 Time Seen by Provider: 09/15/22 17:21 Mode of Arrival: Wheelchair Source of Information: Patient and Relative Limitations: No Limitations Description of Symptoms (Recalled from ER Triage Doc. by RN): 77 yo M presents to ED via wheelchair for ams, blood pressure issues, weakness. pt lives with daughter. daughter reports last night pt began to have some confusion, more than baseline. daughter also reports 2 episodes of incontinance. 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 Daughter states that patient started becoming confused 1 night prior to arrival on 09/14. Today, throughout the day on 09/15, patient was progressively confused, unable to groom himself, and worsening slurred speech. Patient has not had right or left-sided weakness, fevers, vomiting, diarrhea, but has been complaining of mild lower abdominal pain. He had 2 episodes of incontinence of urine, but has not been incontinent of stool. No falls, trauma, or any other concerns. Patient has been ambulating per his normal. Related Data Previous Rx's Medication Instructions Recorded methocarbamol 750 mg tablet 750 mg PO QID 7 days #28 tabs 01/10/21 dicyclomine 10 mg capsule 10 mg PO TID PRN Cramping #15 caps 04/24/21 Allergies Allergy/AdvReac Type Severity Reaction Status Date / Time lisinopril Allergy Mild Verified 09/15/22 17:36 citalopram Allergy Verified 09/15/22 17:36 fluoxetine [From Prozac] Allergy Verified 09/15/22 17:36 rosuvastatin [From Crestor] Allergy Verified 09/15/22 17:36 simvastatin Allergy Verified 09/15/22 17:36 vancomycin Allergy Verified 09/15/22 17:36 [facility] Disclaimer: The information contained in this section may have been updated after the patient was seen, as this information can be updated by other users. Social History (Updated 11/28/21 @ 20:32 by Anna Brice DO) Smoking Status: Former smoker alcohol intake: never current occupational status: retired Travel in the last 8 weeks: None ROS Obtained: Yes All systems reviewed & no additional complaints except as documented Physical Exam General General appearance: alert, in no apparent distress and other (Oriented only to person) Head Head exam: atraumatic and normocephalic Eye Eye exam: Present normal appearance, PERRL and EOMI ENT ENT exam: Present mucous membranes dry Neck Neck exam: Present normal inspection, full ROM and trachea midline; Absent meningismus Respiratory Respiratory exam: Present normal lung sounds bilaterally and other (Tachypnea); Absent respiratory distress, wheezes, stridor, accessory muscle use or prolonged expiratory phase Cardiovascular Cardiovascular exam: Present regular rate, irregular rhythm and systolic murmur (Left upper sternal border, apex) Abdominal Exam Abdominal exam: Present soft and tenderness; Absent distention, guarding, rebound, rigidity or normal bowel sounds Abdominal tenderness: Present suprapubic Extremities Exam Extremities exam: Absent edema Neurologi
[2022-09-15 18:12] LABS: Basophils % 0.4 % (0.1-2.0); Eosinophils % 0.3 % (0.1-12.0); Hematocrit 45.6 % (42.0-52.0); Hemoglobin 14.6 g/dL (14.1-18.0); Lymphocytes # 0.8 K/mm3 (0.7-4.5); Lymphocytes % 11.1 % (10-50); Mean Corpuscular HGB Conc 32.1 g/dL (31.8-35.4); Mean Corpuscular Hemoglobin 28.3 pg (27.0-31.2); Mean Corpuscular Volume 88.3 fl (80-94); Mean Platelet Volume 8.9 fl (7.4-10.4); Monocytes # 0.6 K/mm3 (0.1-1.0); Monocytes % 7.8 % (1.7-9.3); Neutrophils # 5.9 K/mm3 (1.8-7.8); Neutrophils % 80.4 % (37.0-80.0); Platelet Count 127 K/mm3 (142-424); Red Blood Count 5.16 M/mm3 (4.60-6.20); White Blood Count 7.3 K/mm3 (4.8-10.8)
[2022-09-15 18:13] LABS: Microscopic, Urine URINE MICROSCOPIC (MICROSCOPIC)
[2022-09-15 18:14] LABS: Alanine Aminotransferase 19 U/L (12-78); Albumin Level 4.5 g/dl (3.5-5.0); Albumin/Globulin Ratio 1.6 (1.1-1.8); Alkaline Phosphatase 48 U/L (38-126); Anion Gap 12.7 mEq/L (5-15); Aspartate Amino Transferase 25 U/L (17-59); Bilirubin,Total 1.1 mg/dl (0.2-1.3); Blood Urea Nitrogen 22 mg/dl (9-20); Calcium 8.9 mg/dl (8.4-10.2); Carbon Dioxide 27 mmol/L (22.0-30.0); Chloride 106 mmol/L (98-107); Creatinine Clearance Estimated 67 mL/min (50-200); Estimated Glomerular Filt Rate 54 ml/min (>60); GFR (African American) 65 ML/MIN (>60); Globulin 2.9 g/dL (1.3-3.2); Glucose 114 mg/dl (74-100); Lipase 67 U/L (23-300); Potassium 3.7 mmoL/L (3.5-5.1); Sodium 142 mmol/L (136-145); Total Protein,Serum 7.4 g/dl (6.3-8.2)
[2022-09-15 18:15] LABS: Lactic Acid 1.3 mmol/L (0.7-2.1)
[2022-09-15 18:32] LABS: Appearance,Urine CLEAR (Clear); Bilirubin,Urine Negative (Negative); Blood, Urine 1+ (Negative); Color,Urine YELLOW (Yellow); Glucose,Urine (UA) Negative (Negative); Ketones,Urine Negative (Negative); Leukocyte Esterase,Urine Negative (Negative); Nitrate,Urine Negative (Negative); PH,Urine 5.5 (5.0-8.5); Protein,Urine TRACE (Negative); Specific Gravity, Urine >= 1.030 (1.005-1.030); Urobilinogen,Urine 0.2 EU/dl (0.2)
--- NOTE | 2022-09-15 18:33 | PC.NURSE ---
rounded on pt no needs at this time,visitor at bs
--- NOTE | 2022-09-15 18:37 | CT_ITS ---
PROCEDURE INFORMATION: Exam: CT Abdomen And Pelvis With Contrast Exam date and time: 09/15/2022 6:57 PM Age: 77 years old Clinical indication: Abdominal pain; Additional info: Suprapubic abd pain and AMS, urine clean TECHNIQUE: Imaging protocol: Computed tomography of the abdomen and pelvis with contrast. Radiation optimization: All CT scans at this facility use at least one of these dose optimization techniques: automated exposure control; mA and/or kV adjustment per patient size (includes targeted exams where dose is matched to clinical indication); or iterative reconstruction. Contrast material: ISOVUE; Contrast volume: 75 ml; Contrast route: IV; REPORTING DATA: Count of CT and Cardiac NM exams in prior 12 months: This patient has received 5 known CTs and 0 known cardiac nuclear medicine studies in the 12 months prior to the current study. COMPARISON: CR XR PELVIS 1-2V 11/28/2021 3:46 PM FINDINGS: Lungs: 7 mm left basilar calcified granuloma. Heart: Cardiomegaly. Coronary arteries: Heavy coronary artery calcifications. Diaphragm: Small hiatal hernia. Liver: Hepatomegaly. Gallbladder and bile ducts: Normal. No calcified stones. No ductal dilation. Pancreas: Normal. No ductal dilation. Spleen: Punctate splenic granulomas. Adrenal glands: Mild thickening of the left adrenal gland. Kidneys and ureters: 1.2 cm fluid attenuating cyst within the right kidney interpolar region. Stomach and bowel: Fecalized terminal ileum which may indicate delayed transit. Prominent stool within the ascending colon. Mild gaseous distention of the colon. Mild apparent rectal wall thickening. Appendix: No evidence of appendicitis. Intraperitoneal space: Unremarkable. No free air. No significant fluid collection. Vasculature: Heavy calcifications of the aortic root. Heavy atherosclerotic changes of the abdominal aorta and iliac arteries. 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 Lymph nodes: Unremarkable. No enlarged lymph nodes. Urinary bladder: Unremarkable as visualized. Reproductive: Mildly enlarged prostate gland. Bones/joints: No acute osseous findings. Degenerative changes of the spine, hips, and SI joints. Soft tissues: Small fat containing umbilical hernia. Small fat containing left inguinal hernia. IMPRESSION: 1. Mild apparent rectal wall thickening which may be seen with proctitis. 2. Small left fat containing inguinal hernia. 3. Prominent stool within the ascending colon and mild nonspecific gaseous distention of the colon. 4. Additional ancillary findings as above. COMMENTS: Consistent with the [employer]'s Incidental Findings Committee white paper (J Am Balaji Radiol 2018): Any incidental renal lesion less than 1 cm or classified as too small to characterize, or any incidental cystic renal lesion characterized as simple-appearing, is likely benign. No follow-up imaging is recommended for these lesions per consensus recommendations based on imaging criteria.
[2022-09-15 18:38] LABS: Acetone, Serum (Rapid) None Detected (None Detect)
[2022-09-15 18:42] LABS: Creatine Kinase 74 U/L (55-170)
--- NOTE | 2022-09-15 18:50 | PC.NURSE ---
PT TRANSPORTED TO RADIOLOGY VIA STRETCHER.
[2022-09-15 18:56] LABS: NT Pro Brain Natriuretic Pep. 11000 pg/mL (0-450); Troponin I 0.04 ng/ml (0.00-0.034)
[2022-09-15 19:02] LABS: RBC,Urine Occasional #/hpf (0-3)
--- NOTE | 2022-09-15 19:59 | PC.NURSE ---
PATIENT ADMITTED OBSERVATION TO 205 WITH DX. OF CHF TO SERVICE OF HOSPITALIST.
--- NOTE | 2022-09-15 20:16 | CT_ITS ---
PROCEDURE INFORMATION: Exam: CT Head Without Contrast Exam date and time: 09/15/2022 8:37 PM Age: 77 years old Clinical indication: Stroke-like symptoms; Altered mental status/memory loss; Additional info: Confusion TECHNIQUE: Imaging protocol: Computed tomography of the head without contrast. Radiation optimization: All CT scans at this facility use at least one of these dose optimization techniques: automated exposure control; mA and/or kV adjustment per patient size (includes targeted exams where dose is matched to clinical indication); or iterative reconstruction. Other technique: STROKE PROTOCOL was implemented. REPORTING DATA: Count of CT and Cardiac NM exams in prior 12 months: This patient has received 5 known CTs and 0 known cardiac nuclear medicine studies in the 12 months prior to the current study. COMPARISON: CT HEAD/BRAIN WO CON 06/13/2022 6:23 PM FINDINGS: Brain: No acute intracranial hemorrhage. Left MCA (M4, M5 and M6 territory) hypodensities with loss of lopez-white matter differentiation. Additional confluent hypodensities within the cerebral white matter without loss of lopez-white matter differentiation. No midline shift or mass effect. Cerebral ventricles: No ventriculomegaly. Paranasal sinuses: Left maxillary sinus mucous retention cyst. No fluid levels. Mastoid air cells: Visualized mastoid air cells are well aerated. Bones/joints: Unremarkable. No acute fracture. Soft tissues: Unremarkable. IMPRESSION: 1. Left MCA ischemic infarct involving the M4, M5 and M6 territories. No acute intracranial hemorrhage midline shift or mass effect. 2. Additional confluent cerebral white matter hypodensities without loss of lopez-white matter differentiation likely representing chronic small-vessel ischemic changes. ASSESSMENT: ASPECTS ([place]ice Stroke Program Early CT Score) is 7.
--- NOTE | 2022-09-15 20:36 | PC.NURSE ---
Pt arrived to floor via wheelchair @ 2014
--- NOTE | 2022-09-15 20:42 | EXP.HP ---
History of Present Illness *Admission Date: 09/15/22 *Reason for visit:: NSTEMI, CHF, AMS *History of present illness: 77 year old male brought to ED with daughter for confusion. PMHX of left side CVA in 2020, a fib, htn, and hld. [facility] [place] Daughter brought pt for new onset confusion and urinary incontinence. [place] [address], troponin of 0.04, cardiomegly on the chest xray and constipation on the abdominal CTA. He was given 40 of lasix I.V and had a cheng cath placed. His EKG reveals ST depression. He is anticoagulated with eliquis for his a-fib. The ED physician consulted hospitalist team for further management. Upon admission to the medical floor I obtained a head CT due to new onset confusion and blood thinner use. Daughter denies recent falls. He will be admitted for a NSTEMI with an echo pending in the morning and cardiology consult. No UTI, leukocytosis, or other source of infection. [facility] Disclaimer: The information contained in this section may have been updated after the patient was seen, as this information can be updated by other users. Medical History (Updated 09/16/22 @ 10:12 by Lou Damian APRN) Falls frequently Left-sided cerebrovascular accident (CVA) Right sided weakness Social History (Updated 11/28/21 @ 20:32 by Anna Brice DO) Smoking Status: Former smoker alcohol intake: never current occupational status: retired Travel in the last 8 weeks: None Review of Systems Review of Systems Review of systems:: unable to obtain Constitutional Comments: beata Eyes Comments: beata ENT Comments: beata *Cardiovascular Cardiovascular: Denies chest pain Comments: beata *Respiratory Respiratory: Reports other Comments: beata *Gastrointestinal Gastrointestinal: Reports abdominal pain *Genitourinary Genitourinary: Reports urinary incontinence *Musculoskeletal Musculoskeletal: Reports system reviewed and no additional complaints, except as documented *Neurologic Neurologic: Reports confusion Psychiatric Psychiatric: Reports confusion Meds Home Medications and Allergies Home Medications Medication Instructions Recorded Confirmed Type apixaban 5 mg tablet 5 mg PO BID Atrial fibrillation 09/15/22 09/15/22 History atorvastatin 80 mg tablet 80 mg PO HS Cholesterol 09/15/22 09/16/22 History cholecalciferol (vitamin D3) 25 50 mcg PO DAILY Supplement 09/15/22 09/15/22 History mcg (1,000 unit) capsule metoprolol tartrate 100 mg tablet 50 mg PO BID blood pressure 09/15/22 09/15/22 History nifedipine 60 mg tablet,extended 60 mg PO DAILY blood pressure 09/15/22 09/15/22 History release bisacodyl 5 mg tablet 5 mg PO DAILY PRN Constipation 09/16/22 09/16/22 History New Prescriptions to Start Prescriptions: Allergies Allergy/AdvReac Type Severity Reaction Status Date / Time lisinopril Allergy Mild Verified 09/15/22 17:36 citalopram Allergy Verified 09/15/22 17:36 fluoxetine [From Prozac] Allergy Verified 09/15/22 17:36 rosuvastatin [From Crestor] Allergy Verified 09/15/22 17:36 simvastatin Allergy Verified 09/15/22 17:36 vancomycin Allergy Verified 09/15/22 17:36 Exam Data for Last 24 hours Vital signs and Labs for Last 24 Hours: Temp Pulse Resp BP Pulse Ox O2 Del Method 97.8 F 63 16 141/75 H 97 Room Air 09/15/22 20:03 09/15/22 20:03 09/15/22 20:03 09/15/22 20:03 09/15/22 18:30 09/15/22 18:30 Laboratory Results - last 24 hr 09/15/22 17:25: WBC 7.3, RBC 5.16, Hgb 14.6, Hct 45.6, MCV 88.3, MCH 28.3, MCHC 32.1, RDW 15.0, Plt Count 127 L, MPV 8.9, Neut % (Auto) 80.4 H, Lymph % (Auto) 11.1, Turner % (Auto) 7.8, Eos % (Auto) 0.3, Baso % (Auto) 0.4, Neut # (Auto) 5.9, Lymph # (Auto) 0.8, Turner # (Auto) 0.6, Eos # (Auto) 0.0, Baso # (Auto) 0.0, Sodium 142, Potassium 3.7, Chloride 106, Carbon Dioxide 27, Anion Gap 12.7, BUN 22 H, Creatinine 1.30 H, Estimated Creat Clear 67, Estimated GFR 54 L, Est GFR ( Lisa
[2022-09-15 22:09] LABS: Troponin I 0.05 ng/ml (0.00-0.034)
[2022-09-16] VITALS: BP 142/66; PULSE 79; PULSE 90; RESP 18; TEMP 36.6; O2SAT 96
[2022-09-16 00:58] LABS: Troponin I 0.06 ng/ml (0.00-0.034)
[2022-09-16 04:00] VITALS: BP 144/63; PULSE 66; PULSE 90; RESP 16; TEMP 36.7; O2SAT 96; BMI 31.4
[2022-09-16 08:00] VITALS: BP 158/96; PULSE 100; PULSE 96; RESP 16; TEMP 36.4; O2SAT 96
[2022-09-16 09:25] LABS: Anion Gap 15.2 mEq/L (5-15); Blood Urea Nitrogen 23 mg/dl (9-20); Calcium 8.3 mg/dl (8.4-10.2); Carbon Dioxide 25 mmol/L (22.0-30.0); Chloride 105 mmol/L (98-107); Creatinine Clearance Estimated 87 mL/min (50-200); Estimated Glomerular Filt Rate 72 ml/min (>60); GFR (African American) 88 ML/MIN (>60); Glucose 112 mg/dl (74-100); Potassium 3.2 mmoL/L (3.5-5.1); Sodium 142 mmol/L (136-145)
--- NOTE | 2022-09-16 09:27 | PC.NURSE ---
COURTESY TECH NOTE; ROUNDED ON PT 0750, PT SLEEPING AT THIS TIME, CALL LIGHT WITHIN REACH. K JANEL, SRNA
[2022-09-16 09:34] LABS: NT Pro Brain Natriuretic Pep. 6480 pg/mL (0-450)
[2022-09-16 09:35] LABS: Basophils % 0.3 % (0.1-2.0); Eosinophils % 0.1 % (0.1-12.0); Hematocrit 43.3 % (42.0-52.0); Hemoglobin 14.2 g/dL (14.1-18.0); Lymphocytes # 0.9 K/mm3 (0.7-4.5); Lymphocytes % 11.2 % (10-50); Mean Corpuscular HGB Conc 32.8 g/dL (31.8-35.4); Mean Corpuscular Hemoglobin 28.8 pg (27.0-31.2); Mean Corpuscular Volume 87.7 fl (80-94); Mean Platelet Volume 8.5 fl (7.4-10.4); Monocytes # 0.6 K/mm3 (0.1-1.0); Monocytes % 7.4 % (1.7-9.3); Neutrophils # 6.7 K/mm3 (1.8-7.8); Platelet Count 114 K/mm3 (142-424); Red Blood Count 4.94 M/mm3 (4.60-6.20); Red Cell Distribution Width 15.1 % (11.5-17.5); White Blood Count 8.2 K/mm3 (4.8-10.8)
--- NOTE | 2022-09-16 09:53 | EXP.CARD.CON ---
History of Present Illness History of Present Illness Consult date: 09/16/22 Requesting physician: John James Chief complaint: Altered mental status, urinary incontinence History of present illness: History obtained from chart: 77-year-old white male with past medical history of left-sided CVA in 2020 with residual mild right-sided weakness and dysarthria, A-fib on Eliquis, hypertension and hyperlipidemia presented to emergency department last night via his daughter with complaints of confusion and urinary incontinence. Daughter reported confusion started 1 night prior to arrival on 09/14. Throughout 09/15 symptoms became progressively worse with increased confusion, inability to groom self and worsening slurred speech. It was also reported patient had been complaining of mild lower abdominal pain and had two episodes of urinary incontinence. Initial EKG shows atrial fibrillation at a rate of [address] changes without acute ischemic changes noted. Initial ED work-up showed a BNP of 11,000, troponin of 0.04 and cardiomegaly noted on chest x-ray. A CTA of abdomen was performed which showed constipation. Patient was given 40 mg of IV Lasix and admitted for NSTEMI. Of note, no CT of head was obtained in the emergency department and was ordered last night by hospitalist receiving patient. CT of head showed left MCA ischemic infarct involving the M4 M5 and M6 territories with no acute intracranial hemorrhage, midline shift or mass effect. Chronic small vessel ischemic changes were also noted. Preliminary echo shows an estimated EF of 35 to 40%. Cardiology was asked to conuslt for NSTEMI and afib. [facility] Disclaimer: The information contained in this section may have been updated after the patient was seen, as this information can be updated by other users. Medical History (Updated 09/16/22 @ 10:12 by Lou Damian APRN) Falls frequently Left-sided cerebrovascular accident (CVA) Right sided weakness Social History (Updated 11/28/21 @ 20:32 by Anna Brice DO) Smoking Status: Former smoker alcohol intake: never current occupational status: retired Travel in the last 8 weeks: None Review of Systems Review of Systems Review of systems:: unable to obtain Review of systems (narrative): due to patients status *Neurologic Neurologic: Reports confusion Psychiatric Psychiatric: Reports confusion Exam Data for Last 24 hours Vital signs and Labs for Last 24 Hours: Temp Pulse Resp BP Pulse Ox O2 Del Method 97.6 F 96 H 16 158/96 H 96 Room Air 09/16/22 08:00 09/16/22 08:00 09/16/22 08:00 09/16/22 08:00 09/16/22 08:00 09/16/22 09:00 Laboratory Results - last 24 hr 09/15/22 17:25: WBC 7.3, RBC 5.16, Hgb 14.6, Hct 45.6, MCV 88.3, MCH 28.3, MCHC 32.1, RDW 15.0, Plt Count 127 L, MPV 8.9, Neut % (Auto) 80.4 H, Lymph % (Auto) 11.1, Rabun % (Auto) 7.8, Eos % (Auto) 0.3, Baso % (Auto) 0.4, Neut # (Auto) 5.9, Lymph # (Auto) 0.8, Rabun # (Auto) 0.6, Eos # (Auto) 0.0, Baso # (Auto) 0.0, Sodium 142, Potassium 3.7, Chloride 106, Carbon Dioxide 27, Anion Gap 12.7, BUN 22 H, Creatinine 1.30 H, Estimated Creat Clear 67, Estimated GFR 54 L, Est GFR ( Amer) 65, Glucose 114 H, Lactate 1.3, Calcium 8.9, Total Bilirubin 1.1, AST 25, ALT 19, Alkaline Phosphatase 48, Total Creatine Kinase 74, Troponin I 0.04 H, NT-Pro-B Natriuret Pep 55367 H, Total Protein 7.4, Albumin 4.5, Globulin 2.9, Albumin/Globulin Ratio 1.6, Lipase 67, Urine Color Yellow, Urine Appearance Clear, Urine pH 5.5, Ur Specific [place] >= 1.030, Urine Protein Trace, Urine Glucose (UA) Negative, Urine Ketones Negative, Urine Blood 1+, Urine Nitrate Negative, Urine Bilirubin Negative, Urine Urobilinogen 0.2, Ur Leukocyte Esterase Negative, Urine RBC Occasional, Urine WBC None, Ur Squamous Epith Cells None, Urine Bacteria None, Acetone Level None detected 09/15/22 17:56: VBG pH 7.38, VBG pCO2 42.4, VBG pO2 36.7, VBG HCO3 24.5, VBG Total CO2 25.8, VBG O2 Saturat
--- NOTE | 2022-09-16 10:01 | MR_ITS ---
FINAL REPORT CLINICAL HISTORY: cva, confusion, hx cva FINDINGS: Multiplanar MR imaging of the brain was performed without contrast. There is mild age-appropriate atrophy. There are scattered foci of increased T2 signal in the cerebral white matter that have a nonspecific appearance but likely represent severe chronic ischemic/gliotic changes. There is left hemisphere encephalomalacia consistent with prior infarct. There is no evidence of intracranial hemorrhage or mass. No abnormal ventricular dilatation is identified. No abnormal extra-axial fluid collection is seen. No abnormality is seen on the diffusion weighted images. The posterior fossa and brainstem are unremarkable. Normal major vessel vascular flow voids are seen. IMPRESSION: Age-appropriate atrophy and severe chronic ischemic/gliotic changes. No acute intracranial abnormality. Reviewed, Interpreted and Dictated by Adrian Nixon III, MD Transcribed by Dipti Newell Authenticated and [facility]
--- NOTE | 2022-09-16 10:12 | EXP.PN ---
Subjective *Date: 09/17/22 *Time: 05:07 Interval history: He complains of being constipated. He denies chest pain and shortness of breath. Exam Data for Last 24 hours Vital signs and Labs for Last 24 Hours: Temp Pulse Resp BP Pulse Ox O2 Del Method 97.6 F 96 H 16 158/96 H 96 Room Air 09/16/22 08:00 09/16/22 08:00 09/16/22 08:00 09/16/22 08:00 09/16/22 08:00 09/16/22 09:00 Laboratory Results - last 24 hr 09/15/22 17:25: WBC 7.3, RBC 5.16, Hgb 14.6, Hct 45.6, MCV 88.3, MCH 28.3, MCHC 32.1, RDW 15.0, Plt Count 127 L, MPV 8.9, Neut % (Auto) 80.4 H, Lymph % (Auto) 11.1, [place] % (Auto) 7.8, Eos % (Auto) 0.3, Baso % (Auto) 0.4, Neut # (Auto) 5.9, Lymph # (Auto) 0.8, [place] # (Auto) 0.6, Eos # (Auto) 0.0, Baso # (Auto) 0.0, Sodium 142, Potassium 3.7, Chloride 106, Carbon Dioxide 27, Anion Gap 12.7, BUN 22 H, Creatinine 1.30 H, Estimated Creat Clear 67, Estimated GFR 54 L, Est GFR ( Amer) 65, Glucose 114 H, Lactate 1.3, Calcium 8.9, Total Bilirubin 1.1, AST 25, ALT 19, Alkaline Phosphatase 48, Total Creatine Kinase 74, Troponin I 0.04 H, NT-Pro-B Natriuret Pep 33722 H, Total Protein 7.4, Albumin 4.5, Globulin 2.9, Albumin/Globulin Ratio 1.6, Lipase 67, Urine Color Yellow, Urine Appearance Clear, Urine pH 5.5, Ur Specific [place] >= 1.030, Urine Protein Trace, Urine Glucose (UA) Negative, Urine Ketones Negative, Urine Blood 1+, Urine Nitrate Negative, Urine Bilirubin Negative, Urine Urobilinogen 0.2, Ur Leukocyte Esterase Negative, Urine RBC Occasional, Urine WBC None, Ur Squamous Epith Cells None, Urine Bacteria None, Acetone Level None detected 09/15/22 17:56: VBG pH 7.38, VBG pCO2 42.4, VBG pO2 36.7, VBG HCO3 24.5, VBG Total CO2 25.8, VBG O2 Saturation 69.9, VBG Base Excess -0.7 09/15/22 20:55: Troponin I 0.05 H 09/15/22 23:45: Troponin I 0.06 H 09/16/22 08:41: WBC 8.2, RBC 4.94, Hgb 14.2, Hct 43.3, MCV 87.7, MCH 28.8, MCHC 32.8, RDW 15.1, Plt Count 114 L, MPV 8.5, Neut % (Auto) 81.0 H, Lymph % (Auto) 11.2, [place] % (Auto) 7.4, Eos % (Auto) 0.1, Baso % (Auto) 0.3, Neut # (Auto) 6.7, Lymph # (Auto) 0.9, [place] # (Auto) 0.6, Eos # (Auto) 0.0, Baso # (Auto) 0.0, Sodium 142, Potassium 3.2 L, Chloride 105, Carbon Dioxide 25, Anion Gap 15.2 H, BUN 23 H, Creatinine 1.00 D, Estimated Creat Clear 87, Estimated GFR 72, Est GFR ( Amer) 88 D, Glucose 112 H, Calcium 8.3 L, NT-Pro-B Natriuret Pep 6480 H I & O for Last 24 hours: Intake & Output 09/13/22 09/14/22 09/15/22 09/16/22 23:59 23:59 23:59 23:59 Intake Total 70 / 70 Output Total 1100 / 1100 Balance -1030 / -1030 Weight 99.79 kg 99.79 kg Constitutional Constitutional: no acute distress *Routine HEENT Exam Head: Present normocephalic Eye: Present EOMI and PERRL ENT: Present mucous membranes moist *Routine Neck Exam Neck: Present supple; Absent lymphadenopathy *Routine Respiratory Exam Respiratory: Present CTA bilaterally *Routine Cardiovascular Exam Cardiovascular: Present RRR *Routine Abdominal Exam Abdominal: Present soft and normoactive bowel sounds; Absent tenderness *Routine Extremities Exam Extremities: Absent cyanosis, clubbing or edema *Routine Skin Exam Skin: Present warm; Absent rash *Routine Neurological Exam Neurological: Present alert, oriented X3 and CN II-XII intact; Absent sensory deficit Comments: strength is 5/5 in all 4 extremities Assessment and Plan *Assessment and plan (1) Non-ST elevation IA (NSTEMI): Status: Acute Category: Medical Code(s): I21.4 - Non-ST elevation (NSTEMI) myocardial infarction (2) CHF (congestive heart failure): Status: Acute Category: Medical Code(s): I50.9 - Heart failure, unspecified (3) Altered mental status: Status: Acute Category: Medical Code(s): R41.82 - Altered mental status, unspecified (4) Constipation: Status: Acute Category: Medical Code(s): K59.00 - Constipation, unspecified (5) A-fib: Status: Acute
--- NOTE | 2022-09-16 10:23 | CT_ITS ---
FINAL REPORT TECHNIQUE: Thin section axial CT with IV contrast supplemented with multiplanar reconstruction under CT angiogram protocol. This study was performed with techniques to keep radiation doses as low as reasonably achievable (ALARA). Individualized dose reduction techniques using automated exposure control or adjustment of mA and/or kV according to the patient''s size were employed. NASCET criteria was utilized during interpretation. CLINICAL HISTORY: stroke COMPARISON: None FINDINGS: Aortic arch: There is plaque at the origin of the brachiocephalic artery with mild stenosis. Right carotid: Calcified plaque at the carotid bulb. No significant stenosis is seen of the cervical common or internal carotid artery. Left carotid: Calcified plaque at the carotid bulb. 70% stenosis proximal left internal carotid artery. Vertebral: Left vertebral artery is dominant. No significant stenosis is present. Multiple mildly enlarged mediastinal nodes are nonspecific. 11 mm right thyroid nodule. Several other smaller nodules. IMPRESSION: No evidence of significant stenosis or major branch occlusion. Right thyroid nodule. If indicated, thyroid ultrasound may be helpful. Reviewed, Interpreted and Dictated by Adrian Nixon III, MD Transcribed by Ani Ochoa Authenticated and [facility]
--- NOTE | 2022-09-16 10:23 | CT_ITS ---
FINAL REPORT TECHNIQUE: Thin section axial CT with IV contrast supplemented with multiplanar reconstruction under CT angiogram protocol. 3-D reconstructions were performed. This study was performed with techniques to keep radiation doses as low as reasonably achievable (ALARA). Individualized dose reduction techniques using automated exposure control or adjustment of mA and/or kV according to the patient''s size were employed. CLINICAL HISTORY: STROKE COMPARISON: None FINDINGS: CTA HEAD/BRAIN The distal vertebral, basilar and distal internal carotid arteries have an unremarkable appearance. No aneurysm is seen. Major intracranial vessels are patent without significant stenosis. IMPRESSION: No evidence of significant stenosis, aneurysm or major branch occlusion. CT HEAD/BRAIN There is no evidence of intracranial hemorrhage or mass. The ventricular size is within normal limits. There is no evidence of shift of the midline structures. No abnormal extra axial fluid collection is identified. No skull abnormality is seen on the bone window images. IMPRESSION: No acute intracranial abnormality. Reviewed, Interpreted and Dictated by Adrian Nixon III, MD Transcribed by Ani Ochoa Authenticated and . [facility]
--- NOTE | 2022-09-16 11:44 | HMH.PHAINT1 ---
Pharmacy Intervention Comments: [facility] -Fidel Hendricks, PharmD student
--- NOTE | 2022-09-16 13:40 | HMH.PTEV ---
Physical Therapy Evaluation Rehab PT IP Evaluation Start: 09/16/22 10:37 Freq: ONCE Status: Active Protocol: Document 09/16/22 13:35 PHORNE (Rec: 09/16/22 13:40 PHORNE [id number]) Subjective/History History History 77 yowm adm to [facility] with possible CHF and NSTEMI. He has hx of HTN, HTLD, a-fib, and prior L side CVA. He reports he lives alone, no steps to enter the home, and he uses a cane for all ambulation. No family present to provide further hx. Subjective Subjective Pt currently reports no c/o, but he does state he needs a new brief. Unsure if he was continent prior to adm. Rehab PT IP Eval Objective Appearance Patient Behavior Appropriate Patient Orientation Person Difficulty following instructions mild Speech Pattern Aphasic,Difficulty Finding Words,Poor Articulation Ambulation Patient Able to Ambulate Yes Ambulation Observation IP General Gait Pattern Observation Wide Based Gait,Shuffling Step Ambulation Distance (feet) 10 Ambulation Assistive Device Straight Cane Ambulation Ability Contact Guard/Hand Hold Balance Ability to Arise Able, uses arms to help Sitting Balance Steady, safe Standing Balance Steady, wide stance Dynamic Sitting Balance Ability Fair Dynamic Standing Balance Ability Fair Transfers Bed Transfer Ability Contact Guard/Hand Hold Chair Transfer Ability Contact Guard/Hand Hold Sit to Stand Bed Transfer Ability Contact Guard/Hand Hold Sit to Stand Chair Transfer Ability Contact Guard/Hand Hold Rehab PT IP prob,goals,plan Problems Date of Evaluation: 09/16/22 PT IP Problems Bed Mobility,Transfers,Gait Rehab Potential Rehab Potential Good Plan PT Intervention Plan Bed Mobility,Transfers,Gait, Therapeutic Exercise PT Plan Frequency Daily Duration LOS Discharge Goals Bed Transfer Ability Supervision/Stand by Sit to Stand Chair Transfer Ability Supervision/Stand by Ambulation Assistive Device Straight Cane Ambulation Distance (feet) 20 Discharge Plan PT Discharge Plan Pt is currently most appropriate for rehab placement once medically stable for d/c. If he returns home without skilled
--- NOTE | 2022-09-16 13:43 | HMH.OTEV ---
OT Inpatient Evaluation Rehab OT IP Evaluation Start: 09/16/22 10:37 Freq: ONCE Status: Active Protocol: Document 09/16/22 13:35 [facility] (Rec: 09/16/22 13:43 [facility] [id number]) Rehab OT IP Assessment Subjective History Pt oriented x 2 after max verbal cues for encouragement. Pt admitted on 09/15/22 due to NSTEMI, CHF, and AMS. Pt is a 77 year old male with a PMHX of left side CVA in 2020, a fib, htn, and hld. [facility] [place] Daughter brought pt for new onset confusion and urinary incontinence. Pt reports prior to being in the hosptial, pt lived alone. Pt claims he was independent with all ADLs and IADLs. He also reports he still drives. Pt uses a cane during functional transfers. Pt's information provided may not be trustworthy due to continued confusion. Subjective No. Objective Patient Orientation Person,Birthday Upper Extremity Gross ROM WFL Bed Mobility bed mobility-scooting,bed mobility - supine/sit,bed mobility - rolling Assist Level Contact Guard/Hand Hold Transfer Training Sit/Stand Transfer Assist Level Contact Guard/Hand Hold Lower Body Dressing Ability Maximum Assistance Performing Toilet Hygiene Ability Maximum Assistance Rehab OT IP prob,goals,plan Problems Date of Evaluation: 09/16/22 OT IP Problems Bed Mobility,Transfers,Balance ,Self care,Safety Rehab Potential Rehab Potential Good Equipment Needs Assistive Devices Straight Cane Plan OT intervention Plan Bed Mobility,Transfers,Balance ,Self care,Safety,Therapeutic Exercise OT Plan Frequency BID Duration LOS Discharge Goals Bed Mobility Ability Standby Assistance Sit to Stand Chair Transfer Ability Supervision/Stand by Chair Transfer Ability Supervision/Stand by Chair Transfer Technique Sit to/from Ambulatory Chair Transfer Assistive Devices Straight Cane Feeding Ability Assist with Tray Set Up Low
--- NOTE | 2022-09-16 13:54 | SW/DCPLANNER ---
Addendum entered by [facility] 09/20/22 08:09: This patient has been approved SNF level of care for [facility] today. I will update MD and patient's Guardian. Addendum entered by [facility] 09/19/22 11:57: I have updated patient's Guardian regarding discharge plans. Addendum entered by [facility] 09/19/22 10:14: Anna bradford/ [facility] stated that she can accept this patient and will start precert this AM. Addendum entered by [facility] 09/18/22 13:15: Cassie bradford/ [facility] has called me back stating that due to new ownership auth has NOT been started and not sure when she can start auth on patient. I called and spoke with patient's Guardian and she is fine with checking into the following facilities: [facility] (faxed), [facility] (no beds) and [facility] (faxed). I will continue to follow up with patient/Guardian, MD and facilities. [facility] in [place]: phone [phone] fax [phone] Addendum entered by [facility] 09/17/22 09:20: Cassie bradford/ [facility] stated that she is able to accept this patient and will start precert this AM. I have updated Cristina and . Addendum entered by [facility] 09/17/22 08:28: I spoke with Cristina this AM regarding discharge plans and PT/OT recommendation to SNF level of care. Cristina stated that patient resides at home w/ her and her daughter is with patient during the day. Crsitina is agreeable to placement at time of discharge and prefers [facility] or [facility]. Patient information will be faxed to both facilities. Discharge date is unknown at this time. I will continue to follow up with gus/MD Cristina and facilities. Original Note: PT/OT evaluated patient and recommended SNF level of care at time of discharge. I have attempted to contact patient's Guardian (Cristina): no answer and no voicemail set up at this time. I will continue to get in touch with Guardian regarding placement. Discharge date is unknown at this time.
--- NOTE | 2022-09-16 14:37 | HMH.SLAPHASI ---
Speech & Language Evaluation Speech/Language Aphasia Evaluation Start: 09/16/22 14:14 Freq: once Status: Complete Protocol: Document 09/16/22 14:14 ROBINAJUAN PABLOLESVIATARYN (Rec: 09/16/22 14:37 MIGUEL [id number]) Aphasia Assessment/Goals/Plan Assessment Date of Evaluation: 09/16/22 Evaluation Type Initial Certification Assessment/Problems Dysarthria per MD order Does Patient Qualify for Service Yes Qualify/Failure Comment Based on the results of the Mini-Mental Status Examination and informal dysarthria exam, Mr. Fernandes does qualify for skilled ST services in order to improve speech intelligibility and orientation. Plan Pt will be seen # times/week 2 for # weeks 4 Anticipate reaching STG in # weeks 2 Anticipate reaching LTG in # weeks 4 Pt/Guardian verbally ack understanding Yes of dx/prognosis/goals Pt/Guardian verbally ack understanding Yes of/consent to tx prog G -code Required No STG-Attending/Orientation/Memory Orientation 80 STG-Intell/Buccal/Labial Strength Intelligibility 60 [employer] Specialist Goals Increase oral motor tone to improve Yes intelligibility. Increase cognitive skills to communicate Yes w/family & friends Education Instructions provided Assessment results were discussed with nursing and care management. Pt/Caregiver Able to Recall Information Able to recall/restate Reinforcement needed No Speech & Language HPI History Present Illness Description of Patient Problem Mr. Melendrez is a 77 year old male who presented to [facility] ER for confusion and urinary incontinence. He has a medical hx of left side CVA in 2020, a fib, htn, hld, and right sided weakness. His chest x- ray revealed cardiomegly and a possible small left pleural effusion. Abdominal CTA revealed constipation. EKG revealed ST depression. Pt is recorded to fall frequently. Pt was on room air and current diet was NPO. Is this evaluation r/t stroke? No Aphasia Evaluations Communication Speech Intelligibility Speech sounded distorted and dysarthric. Mostly
[2022-09-16 14:57] VITALS: BMI 31.4
[2022-09-16 16:00] VITALS: BP 135/79; PULSE 71; RESP 22; TEMP 36.5; O2SAT 97
--- NOTE | 2022-09-16 16:45 | PC.NURSE ---
PT ATTEMPTS TO ANSWER QUESTIONS WHEN ASKED BUT SPEECH IS GARBLED AND PT HAS DIFFICULTY FINDING WORDS. PT IS HOWEVER ABLE TO RESPOND TO COMMANDS. NO WEAKNESS NOTED TO EITHER SIDE. PT ABLE TO STAND AND WALK WITH PT TODAY. BED ALARM ON FOR PT SAFETY. DID WELL SWALLOWING PILLS. PT HAS HAD NO NEEDS OR C/O NOTED THUS FAR THIS SHIFT. VSS.
--- NOTE | 2022-09-16 19:33 | CA_ITS ---
APPROVED REPORT EXAM: Comprehensive 2D, Doppler, and color-flow Echocardiogram Electronic Device Repairer: Anna Rodriguez CRT Ht: 5 ft 10 in Wt: 219lbs BSA: 2.17 BP: 147/71 mmHg Indications: Congestive Heart Failure, CVA/TIA, Atrial Fibrillation, Hyperlipidemia, Hypertension/HDD, AMS, NSTEMI 2D Dimensions LVOT 2.02 cm (M/F) 1.5-2.5 LA Volume 33.30 mL LA Volume Index 15.00 mL/m2 (M/F) 16-34 M-Mode Dimensions RVDd 2.79 cm (0.9-2.6) LA Diam 4.17 cm (1.9-4.0) LVDd 5.51 cm (3.5-5.7) Ao Diam 4.50 cm (2.0-3.7) LVDs 4.45 cm (3.5-5.7) IVSd 1.58 cm (0.6-1.1) PWd 0.93 cm (0.6-1.1) EF (Teich) 39.10% FS 19.20% EDV (Teich) 148.00 mL TAPSE 1.66 (<1.7) ESV (Teich) 90.10 mL LV Diastology E Decel Time 147.00 (160-240 msec) E/A Ratio 3.46 MED E' 4.30 (< 7 cm/sec) MED A' 2.00 cm/s E'/MED E' Ratio 22.19 (>14) LAT E' 7.60 (<10 cm/sec) LAT A' 2.80 cm/s E/LAT E' Ratio 12.55 (>14) Aortic Valve AI PHT 462.00 ms AO Peak GR. 6.90 mmHg Mitral Valve MV E Max Gen. 95.00 (40-130 cm/s) MV A Velocity 28.00 (40-130 cm/s) E/A Ratio 3.46 MV Decel. Time 147.00 (160-240 ms) MV PHT 43.00 ms Pulmonary Valve PV Peak Velocity 121.00 (50-150 cm/s) Tricuspid Valve TR P. Velocity 218.00 cm/s RAP Estimate 10.00 mmHg RVSP 28.90 mmHg Left Ventricle The left ventricle is normal size. Left ventricular systolic function is mildly to moderately decreased. There is increased LV wall thickness. There is mild to moderate global hypokinesis present. There is severe hypokinesis of the anterior, anterolateral, and anteroseptal LV curiel. Grade III diastolic dysfunction is present. LVEF is 40%. Right Ventricle The right ventricle is normal size. The right ventricular systolic function is normal. Atria The left atrium size is normal. The right atrium size is normal. Aortic Valve The aortic valve is mildly thickened. There is calcification and fusion between the right and non-coronary cusps. The aortic valve is functionally bicuspid. There is no aortic valvular stenosis. Mild aortic regurgitation. Mitral Valve The mitral valve is normal in structure. No evidence of mitral valve stenosis. Mild mitral regurgitation. Tricuspid Valve The tricuspid valve leaflets are thin and pliable. Mild tricuspid regurgitation. RVSP= 15 mmHg + RA pressure Pulmonic Valve The pulmonary valve is normal in structure. Trace pulmonic regurgitation. Great Vessels The aortic root is normal in size. The ascending aorta is borderline dilated. The ascending aorta measures 3.7 cm. The IVC is not well visualized. Pericardium There is no pericardial effusion. Other Information Study Quality: Technically Difficult Conclusion This was a technically difficult study due to poor accoustic windows. Mild to moderate reduction in LV systolic function (LVEF=40%) Severe hypokinesis of anterior, anterolateral, and anterseptal LV curiel Grade III diastolic dysfunction Mildly thickened AV with calcification and fusion of right and non-coronary cusps. Functionally bicuspid AV. No . Mild AI. Mild MR and TR. Electronically signed by : Jeana Garcia, 09/16/2022 11:53:36
[2022-09-16 20:00] VITALS: BP 127/82; PULSE 72; RESP 19; TEMP 36.8; O2SAT 96
[2022-09-17] VITALS (8 sets, daily range): BP systolic 117–133; BP diastolic 65–76; PULSE 60–90; RESP 17–19; TEMP 36.4–36.9; O2SAT 94–99; BMI 28.3
--- NOTE | 2022-09-17 05:35 | PC.NURSE ---
no acute changes t/o shift. alert to self. BA on. rested well t/o night. bed in lowest/locked position. cb in reach. POC ongoing.
[2022-09-17 07:13] LABS: Anion Gap 12.4 mEq/L (5-15); Blood Urea Nitrogen 28 mg/dl (9-20); Calcium 8.4 mg/dl (8.4-10.2); Carbon Dioxide 26 mmol/L (22.0-30.0); Chloride 104 mmol/L (98-107); Creatinine Clearance Estimated 78 mL/min (50-200); Estimated Glomerular Filt Rate 72 ml/min (>60); GFR (African American) 88 ML/MIN (>60); Glucose 98 mg/dl (74-100); Magnesium 2.2 mg/dl (1.6-2.3); Potassium 3.4 mmoL/L (3.5-5.1); Sodium 139 mmol/L (136-145)
[2022-09-17 07:58] LABS: Thyroid Stimulating Hormone 1.52 uIU/mL (0.465-4.68)
--- NOTE | 2022-09-17 09:21 | EXP.CARD.PN ---
Subjective Subjective Date: 09/17/22 Time: 08:30 Principal diagnosis: Acute encephalopathy, urinary incontinence, systolic and diastolic CHF Interval history: Doing well this morning, labs reviewed. Exam Data for Last 24 hours Vital signs and Labs for Last 24 Hours: Temp Pulse Resp BP Pulse Ox O2 Del Method 98.4 F 77 19 128/69 99 Room Air 09/17/22 08:00 09/17/22 08:00 09/17/22 08:00 09/17/22 08:00 09/17/22 08:00 09/17/22 08:00 Laboratory Results - last 24 hr 09/16/22 08:41: WBC 8.2, RBC 4.94, Hgb 14.2, Hct 43.3, MCV 87.7, MCH 28.8, MCHC 32.8, RDW 15.1, Plt Count 114 L, MPV 8.5, Neut % (Auto) 81.0 H, Lymph % (Auto) 11.2, [place] % (Auto) 7.4, Eos % (Auto) 0.1, Baso % (Auto) 0.3, Neut # (Auto) 6.7, Lymph # (Auto) 0.9, [place] # (Auto) 0.6, Eos # (Auto) 0.0, Baso # (Auto) 0.0, Sodium 142, Potassium 3.2 L, Chloride 105, Carbon Dioxide 25, Anion Gap 15.2 H, BUN 23 H, Creatinine 1.00 D, Estimated Creat Clear 87, Estimated GFR 72, Est GFR ( Amer) 88 D, Glucose 112 H, Calcium 8.3 L, NT-Pro-B Natriuret Pep 6480 H 09/17/22 06:34: Sodium 139, Potassium 3.4 L, Chloride 104, Carbon Dioxide 26, Anion Gap 12.4, BUN 28 H, Creatinine 1.00, Estimated Creat Clear 78, Estimated GFR 72, Est GFR ( Amer) 88, Glucose 98, Calcium 8.4, Magnesium 2.2, TSH 1.52 I & O for Last 24 hours: Intake & Output 09/14/22 09/15/22 09/16/22 09/17/22 23:59 23:59 23:59 23:59 Intake Total 430 / 500 310 / 310 Output Total 1100 / 1600 700 / 700 Balance -670 / -1100 -390 / -390 Weight 220 lb 219 lb 15.988 oz 197 lb 9.6 oz Microbiology Reports for the Last 24 Hours: Microbiology 09/15/22 17:25 Urine,Catheterized Urine Culture - Preliminary NO GROWTH AFTER 24 HOURS Constitutional Constitutional: no acute distress *Routine HEENT Exam Head: Present normocephalic Eye: Present EOMI and PERRL ENT: Present mucous membranes moist *Routine Neck Exam Neck: Present supple; Absent lymphadenopathy *Routine Respiratory Exam Respiratory: Present CTA bilaterally and symmetric chest movement *Routine Cardiovascular Exam Cardiovascular: Present RRR, Normal S1 and Normal S2 *Routine Abdominal Exam Abdominal: Present soft and normoactive bowel sounds; Absent tenderness *Routine Extremities Exam Extremities: Present full ROM and normal capillary refill; Absent edema *Routine Skin Exam Skin: Present intact, dry and warm *Routine Neurological Exam Neurological: Present alert, oriented X3 and CN II-XII intact; Absent sensory deficit Comments: strength is 5/5 in all 4 extremities Detailed Neck Exam: Thyroids Thyroid: Absent bruit Progress Note: A&P Assessment and plan (1) Non-ST elevation [place] (NSTEMI): Status: Acute (2) CHF (congestive heart failure): Status: Acute (3) Altered mental status: Status: Acute (4) Constipation: Status: Acute (5) A-fib: Status: Acute (6) HLD (hyperlipidemia): Status: Acute (7) HTN (hypertension): Status: Acute Assessment and Plan Assessment and Plan for All Diagnoses:: Acute myocardial injury Elevated troponin -In the setting systolic heart failure, A-fib, acute illness -Troponin 0.01-0.06 -EKG shows A-fib without acute ischemic changes noted -Given patient's current altered mental status and concern for stroke- planned left heart catheterization at this time -Continue aspirin 81 mg p.o. daily, atorvastatin 80 mg p.o. daily and metoprolol tartrate 50 mg p.o. twice daily 09/17/2022: Echo shows mild to moderate reduction in LV systolic function estimated EF 40%, severe hypokinesis of anterior anterior lateral and anteroseptal LV curiel, grade 3 diastolic dysfunction. Will need outpatient ischemic evaluation History of A-fib Vipul VascScore 7 -Anticoagulated on Eliquis 5 mg p.o. twice daily Currently in A-fib rate controlled -Continue metoprolol tartrate 50 mg p.o. twice daily Acute HFrEF NYHA II-III -Preliminary echo from
--- NOTE | 2022-09-17 20:03 | EXP.ACUTE.PN ---
Subjective *Date: 09/17/22 *Time: 20:03 Interval history: Patient in no acute events overnight. Currently awaiting placement. Diuresing well. Stable on room air. Labs improving with normalized kidney function and stable electrolytes this morning. MRI reviewed with no acute strokes. Medical Exam Vital signs and Labs for Last 24 Hours: Vital Signs Temp Pulse Pulse Resp BP Pulse Ox O2 Del Method 09/17/22 19:12 Room Air 09/17/22 16:00 70 09/17/22 17:05 Room Air 09/17/22 15:57 Room Air 09/17/22 12:00 60 09/17/22 08:00 90 09/17/22 15:14 98.4 F 83 18 124/68 97 Room Air 09/17/22 13:37 Room Air 09/17/22 12:10 Room Air 09/17/22 11:43 98.3 F 62 17 126/76 98 Room Air 09/17/22 08:00 97 Room Air 09/17/22 11:00 Room Air 09/17/22 09:00 Room Air 09/17/22 08:00 98.4 F 77 19 128/69 99 Room Air 09/17/22 04:00 98.3 F 83 18 117/75 94 L Room Air 09/17/22 04:00 80 09/17/22 01:00 Room Air 09/17/22 06:11 Room Air 09/17/22 04:35 Room Air 09/17/22 03:00 Room Air 09/17/22 00:00 80 09/17/22 00:00 97.7 F 70 18 133/70 97 Room Air 09/17/22 00:00 80 09/16/22 23:00 Room Air 09/16/22 21:00 Room Air Intake and Output 09/17/22 09/17/22 09/17/22 07:59 15:59 23:59 Intake Total 70 / 790 480 / 790 240 / 790 Output Total 700 / 1000 300 / 1000 Balance -630 / -210 180 / -210 240 / -210 Intake: Intake, Oral Amount 60 / 780 480 / 780 240 / 780 Intake, Other Amount 10 / 10 Output: Output, Urine Amount 700 / 1000 300 / 1000 Other: Intake, Other Source Saline Solution Number of Unmeasured Voids 0 1 Weight 89.63 kg Patient Weight 09/17/22 23:59 Weight 89.63 kg Laboratory Results - last 24 hr 09/17/22 06:34: Sodium 139, Potassium 3.4 L, Chloride 104, Carbon Dioxide 26, Anion Gap 12.4, BUN 28 H, Creatinine 1.00, Estimated Creat Clear 78, Estimated GFR 72, Est GFR ( Amer) 88, Glucose 98, Calcium 8.4, Magnesium 2.2, TSH 1.52 I & O for Labs for Last 24 Hours: Intake & Output 09/14/22 09/15/22 09/16/22 09/17/22 23:59 23:59 23:59 23:59 Intake Total 430 / 500 790 / 790 Output Total 1100 / 1600 1000 / 1000 Balance -670 / -1100 -210 / -210 Weight 99.79 kg 99.79 kg 89.63 kg Microbiology Reports for the Last 24 Hours: Microbiology 09/15/22 18:23 Blood Blood Culture - Preliminary NO GROWTH AFTER 48 HOURS 09/15/22 17:25 Urine,Catheterized Urine Culture - Final NO GROWTH AFTER 48 HOURS 09/15/22 17:25 Blood Blood Culture - Preliminary NO GROWTH AFTER 48 HOURS Constitutional: Present no acute distress, average body habitus and chronically ill appearing Head: Present atraumatic and normocephalic ENT: Present normal exam Respiratory: Present normal respiratory effort; Absent rhonchi, wheezes or crackles Cardiac: Present Irregularly Regular GI: Present normal bowel sounds; Absent tenderness Extremities: Present normal inspection and full ROM Skin: Present intact; Absent erythema Neuro: Present Grossly Intact, alert, awake and moves all extremities Comment:: Dysarthric. Oriented to self. Assessment and Plan *Assessment and plan (1) Non-ST elevation [place] (NSTEMI): Status: Acute Category: Medical Code(s): I21.4 - Non-ST elevation (NSTEMI) myocardial infarction (2) CHF (congestive heart failure): Status: Acute Qualifiers: Heart failure type: combined systolic and diastolic Heart failure chronicity: acute on chronic Qualified Code(s): I50.43 - Acute on chronic combined systolic (congestive) and diastolic (congestive) heart failure Category: Medical Code(s): I50.9 - Heart failure, unspecified (3) Constipation: Status: Acute Qualifiers: Constipation type: slow transi
[2022-09-18] VITALS (9 sets, daily range): BP systolic 112–140; BP diastolic 49–83; PULSE 59–92; RESP 17–18; TEMP 36.4–36.8; O2SAT 91–98; BMI 28.5
--- NOTE | 2022-09-18 05:40 | PC.NURSE ---
no acute changes t/o the shift. pt ambulated to the toilet for a bm. BA on for safety. rested well t/o the night. speech is garbled at baseline. POC ongoing. cb within reach, bed locked/lowest position.
[2022-09-18 06:48] LABS: Basophils % 0.4 % (0.1-2.0); Eosinophils # 0.1 K/mm3 (0.0-0.4); Eosinophils % 0.9 % (0.1-12.0); Hematocrit 46.4 % (42.0-52.0); Hemoglobin 15.5 g/dL (14.1-18.0); Lymphocytes # 1.5 K/mm3 (0.7-4.5); Lymphocytes % 26.9 % (10-50); Mean Corpuscular HGB Conc 33.4 g/dL (31.8-35.4); Mean Corpuscular Hemoglobin 28.8 pg (27.0-31.2); Mean Corpuscular Volume 86.3 fl (80-94); Mean Platelet Volume 9.6 fl (7.4-10.4); Monocytes # 0.4 K/mm3 (0.1-1.0); Monocytes % 7.5 % (1.7-9.3); Neutrophils # 3.6 K/mm3 (1.8-7.8); Neutrophils % 64.3 % (37.0-80.0); Platelet Count 135 K/mm3 (142-424); Red Blood Count 5.38 M/mm3 (4.60-6.20); Red Cell Distribution Width 14.9 % (11.5-17.5); White Blood Count 5.6 K/mm3 (4.8-10.8)
[2022-09-18 06:54] LABS: Alanine Aminotransferase 18 U/L (12-78); Albumin Level 3.6 g/dl (3.5-5.0); Albumin/Globulin Ratio 1.3 (1.1-1.8); Alkaline Phosphatase 44 U/L (38-126); Anion Gap 10.5 mEq/L (5-15); Aspartate Amino Transferase 35 U/L (17-59); Blood Urea Nitrogen 30 mg/dl (9-20); Calcium 8.3 mg/dl (8.4-10.2); Carbon Dioxide 25 mmol/L (22.0-30.0); Chloride 105 mmol/L (98-107); Creatinine Clearance Estimated 79 mL/min (50-200); Estimated Glomerular Filt Rate 72 ml/min (>60); GFR (African American) 88 ML/MIN (>60); Globulin 2.7 g/dL (1.3-3.2); Glucose 98 mg/dl (74-100); Magnesium 2.3 mg/dl (1.6-2.3); Potassium 3.5 mmoL/L (3.5-5.1); Sodium 137 mmol/L (136-145); Total Protein,Serum 6.3 g/dl (6.3-8.2)
--- NOTE | 2022-09-18 07:25 | EXP.DC.SUM ---
General Admission date:: 09/15/22 Discharge date: 09/20/22 HPI HPI HPI: 77 year old male brought to ED with daughter for confusion. PMHX of left side CVA in 2020, a fib, htn, and hld. [facility] [place] Daughter brought pt for new onset confusion and urinary incontinence. [place] [address], troponin of 0.04, cardiomegly on the chest xray and constipation on the abdominal CTA. He was given 40 of lasix I.V and had a cheng cath placed. His EKG reveals ST depression. He is anticoagulated with eliquis for his a-fib. The ED physician consulted hospitalist team for further management. Upon admission to the medical floor I obtained a head CT due to new onset confusion and blood thinner use. Daughter denies recent falls. He will be admitted for a NSTEMI with an echo pending in the morning and cardiology consult. No UTI, leukocytosis, or other source of infection. Hospital Course Hospital Course Hospital Course: Mr. 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 He was brought into the ED by his daughter for urinary incontinence and 2 days of confusion, e.g. he tried to use his razor as a comb. Appears to be back to baseline mentation. Currently awaiting placement in nursing facility. Problems addressed as follows: #systolic and diastolic CHF exacerbation #A-fib # NSTEMI # Hypertension -Cardiology consulted, during admission. In the setting of patient's confusion and history of stroke, with no ischemic changes on EKG, no plan for intervention at this time. Patient has remained chest pain-free. Treated with goal-directed therapy. Optimizing therapy for his acute combined heart failure. Medications at this time include the following: Continue Entresto 24/26 mg p.o. twice daily, Aldactone 25 mg daily, Jardiance 10 mg daily, Eliquis 5 mg twice daily, metoprolol 50 mg twice daily, Lipitor 80 mg daily, aspirin 81 mg daily. His A-fib is currently rate controlled. Was diuresed during admission with Lasix. Appears euvolemic on exam and with improvement in BNP, we will continue with spironolactone only at this time. Plan for follow-up with cardiology in the coming weeks to discuss outpatient ischemic evaluation. Of note: 09/17/2022 Echo shows mild to moderate reduction in LV systolic function estimated EF 40%, severe hypokinesis of anterior anterior lateral and anteroseptal LV curiel, grade 3 diastolic dysfunction. History of CVA Acute confusion -CT of head on 09/15 with left MCA ischemic infarct involving the M4 through 6 territories with no acute intracranial hemorrhage. MRI obtained showing that this is a chronic finding from previous stroke. No acute stroke or CVA identified during this admission. Continue aspirin and statin. Currently anticoagulated with Eliquis. Mentation has improved back to baseline with treatment of his heart failure and optimization of therapy. Has remained at baseline mentation for the past 4 days. Cultures were negative for infectious workup. Patient medically stable for discharge to nursing facility. Exam Data for Last 24 hours Vital signs and Labs for Last 24 Hours: Temp Pulse Resp BP Pulse Ox O2 Del Method 97.7 F 75 18 125/75 91 L Room Air 09/18/22 04:00 09/18/22 04:00 09/18/22 04:00 09/18/22 04:00 09/18/22 04:00 09/18/22 06:23 Laboratory Results - last 24 hr 09/17/22 06:34: TSH 1.52 09/18/22 06:00: WBC 5.6 D, RBC 5.38, Hgb 15.5, Hct 46.4, MCV 86.3, MCH 28.8, MCHC 33.4, RDW 14.9, Plt Count 135 L, MPV 9.6, Neut % (Auto) 64.3, Lymph % (Auto) 26.9, [place] % (Auto) 7.5, Eos % (Auto) 0.9, Baso % (Auto) 0.4, Neut # (Auto) 3.6, Lymph # (Auto) 1.5, [place] # (Auto) 0.4, Eos # (Auto) 0.1, Baso # (Auto) 0.0, Sodium 137, Potassium 3.5, Chloride 105, Carbon Dioxide 25, Anion Gap 10.5, BUN 30 H, Creatinine 1.00, Estimated Creat Clear 79, Estimated GFR 72, Est GFR (
--- NOTE | 2022-09-18 15:59 | PC.NURSE ---
PT IS RESTING IN BED. ALERT AND ORIENTED X2. PT TOLERATED SITTING UP IN THE CHAIR FOR SEVERAL HOURS THIS SHIFT. GARBLES SPEECH AND PT IS VERY SLOW TO RESPOND BUT WILL ANSWER QUESTIONS AND FOLLOW SIMPLE COMMANDS. LUNG SOUNDS CLEAR. ABDOMEN SOFT WITH SOME TENDERNESS NOTED (LOWER QUADS). PURWICK IN PLACE. EATING AND DRINKING WELL. WILL CONTINUE TO MONITOR.
--- NOTE | 2022-09-18 17:07 | EXP.ACUTE.PN ---
Subjective *Date: 09/18/22 *Time: 17:07 Interval history: Patient remained stable. Tolerating p.o. intake with assistance. On room air. Hemodynamic stable. No overnight event Medical Exam Vital signs and Labs for Last 24 Hours: Vital Signs Temp Pulse Pulse Resp BP Pulse Ox O2 Del Method 09/18/22 15:48 97.5 F L 73 17 135/70 97 Room Air 09/18/22 12:00 60 09/18/22 15:00 Room Air 09/18/22 12:59 Room Air 09/18/22 11:00 Room Air 09/18/22 11:47 98.2 F 59 L 17 140/83 98 Room Air 09/18/22 09:00 Room Air 09/18/22 08:00 90 09/18/22 08:00 Room Air 09/18/22 08:00 97.6 F 69 17 112/49 L 98 Room Air 09/18/22 04:00 97.7 F 75 18 125/75 91 L Room Air 09/18/22 00:00 70 09/17/22 20:00 90 09/18/22 00:00 97.6 F 67 18 121/57 L 96 Room Air 09/18/22 06:23 Room Air 09/18/22 04:26 Room Air 09/18/22 02:22 Room Air 09/18/22 00:54 Room Air 09/17/22 23:00 Room Air 09/17/22 21:00 Room Air 09/17/22 20:00 97.5 F L 83 18 127/65 96 Room Air 09/17/22 19:12 Room Air Intake and Output 09/18/22 09/18/22 09/18/22 07:59 15:59 23:59 Intake Total 370 / 1090 720 / 1090 Output Total 0 / 0 Balance 370 / 1090 720 / 1090 Intake: Intake, Oral Amount 360 / 1080 720 / 1080 Intake, Other Amount 10 / 10 Output: Output, Urine Amount 0 / 0 Other: Intake, Other Source Saline Solution Number of Unmeasured Voids 1 Number of Bowel Movements 1 Weight 90.582 kg Patient Weight 09/18/22 23:59 Weight 90.582 kg Laboratory Results - last 24 hr 09/18/22 06:00: WBC 5.6 D, RBC 5.38, Hgb 15.5, Hct 46.4, MCV 86.3, MCH 28.8, MCHC 33.4, RDW 14.9, Plt Count 135 L, MPV 9.6, Neut % (Auto) 64.3, Lymph % (Auto) 26.9, [place] % (Auto) 7.5, Eos % (Auto) 0.9, Baso % (Auto) 0.4, Neut # (Auto) 3.6, Lymph # (Auto) 1.5, [place] # (Auto) 0.4, Eos # (Auto) 0.1, Baso # (Auto) 0.0, Sodium 137, Potassium 3.5, Chloride 105, Carbon Dioxide 25, Anion Gap 10.5, BUN 30 H, Creatinine 1.00, Estimated Creat Clear 79, Estimated GFR 72, Est GFR ( Amer) 88, Glucose 98, Calcium 8.3 L, Magnesium 2.3, Total Bilirubin 1.0, AST 35 D, ALT 18, Alkaline Phosphatase 44, Total Protein 6.3, Albumin 3.6, Globulin 2.7, Albumin/Globulin Ratio 1.3 I & O for Labs for Last 24 Hours: Intake & Output 09/15/22 09/16/22 09/17/22 09/18/22 23:59 23:59 23:59 23:59 Intake Total 430 / 500 790 / 1160 1090 / 1090 Output Total 1100 / 1600 1400 / 1400 0 / 0 Balance -670 / -1100 -610 / -240 1090 / 1090 Weight 99.79 kg 99.79 kg 89.63 kg 90.582 kg Microbiology Reports for the Last 24 Hours: Microbiology 09/15/22 18:23 Blood Blood Culture - Preliminary NO GROWTH AFTER 48 HOURS 09/15/22 17:25 Urine,Catheterized Urine Culture - Final NO GROWTH AFTER 48 HOURS 09/15/22 17:25 Blood Blood Culture - Preliminary NO GROWTH AFTER 48 HOURS Constitutional: Present no acute distress, average body habitus and chronically ill appearing Head: Present atraumatic and normocephalic ENT: Present normal exam Respiratory: Present normal respiratory effort; Absent rhonchi, wheezes or crackles Cardiac: Present Irregularly Regular GI: Present normal bowel sounds; Absent tenderness Extremities: Present normal inspection and full ROM Skin: Present intact; Absent erythema Neuro: Present Grossly Intact, alert, awake and moves all extremities Comment:: Dysarthric. Oriented to self. Assessment and Plan *Assessment and plan (1) Non-ST elevation [place] (NSTEMI): Status: Acute Category: Medical Code(s): I21.4 - Non-ST elevation (NSTEMI) myocardial infarction (2) CHF (congestive heart failure): Status: Acute Qualifiers: Heart failure chronicity: acute on chronic Heart failure type: combined systolic and diastolic Qualif
[2022-09-19] VITALS: BP 140/65; PULSE 58; PULSE 70; RESP 18; TEMP 36.9; O2SAT 100
[2022-09-19 04:00] VITALS: BP 114/72; PULSE 60; PULSE 78; RESP 20; TEMP 37.1; O2SAT 94; BMI 28.8
[2022-09-19 07:42] LABS: Chloride 105 mmol/L (98-107); Potassium 3.7 mmoL/L (3.5-5.1); Sodium 138 mmol/L (136-145)
[2022-09-19 07:45] LABS: Alanine Aminotransferase 20 U/L (12-78); Albumin/Globulin Ratio 1.3 (1.1-1.8); Alkaline Phosphatase 48 U/L (38-126); Anion Gap 10.7 mEq/L (5-15); Aspartate Amino Transferase 26 U/L (17-59); Bilirubin,Total 0.9 mg/dl (0.2-1.3); Blood Urea Nitrogen 28 mg/dl (9-20); Calcium 8.5 mg/dl (8.4-10.2); Carbon Dioxide 26 mmol/L (22.0-30.0); Creatinine Clearance Estimated 80 mL/min (50-200); Estimated Glomerular Filt Rate 72 ml/min (>60); GFR (African American) 88 ML/MIN (>60); Globulin 2.3 g/dL (1.3-3.2); Glucose 93 mg/dl (74-100); Total Protein,Serum 5.3 g/dl (6.3-8.2)
[2022-09-19 08:00] VITALS: BP 125/67; PULSE 77; PULSE 90; RESP 22; TEMP 36.9; O2SAT 97
--- NOTE | 2022-09-19 09:49 | PC.NURSE ---
Addendum entered by Georgie Allen RN 09/19/22 10:03: rt sided weakness noted on am assessment Original Note: difficult to understand pt when talking. pt has difficulty finding words when asking questions, stating he has a speech impediment from the stroke pt alert to person and place. pt become slightly frustrated when asked the year why do you want to know? why are you asking me pt ref to answer any more questions. pt states he was never confused.
[2022-09-19 12:00] VITALS: BP 127/55; PULSE 62; RESP 18; TEMP 36.4; O2SAT 98
--- NOTE | 2022-09-19 14:10 | EXP.ACUTE.PN ---
Subjective *Date: 09/19/22 *Time: 14:10 Interval history: Patient remained stable. Tolerating p.o. intake with assistance. On room air. Hemodynamic stable. No overnight event Medical Exam Vital signs and Labs for Last 24 Hours: Vital Signs Temp Pulse Pulse Resp BP Pulse Ox O2 Del Method 09/19/22 13:00 Room Air 09/19/22 08:00 90 09/19/22 12:00 97.6 F 62 18 127/55 L 98 Room Air 09/19/22 11:00 Room Air 09/19/22 09:00 Room Air 09/19/22 08:00 Room Air 09/19/22 08:00 98.5 F 77 22 125/67 97 09/19/22 04:00 60 09/19/22 05:00 Room Air 09/19/22 04:00 60 09/19/22 04:00 98.8 F 78 20 114/72 94 L Room Air 09/19/22 03:00 Room Air 09/19/22 00:36 Room Air 09/19/22 00:00 70 09/18/22 20:00 70 09/19/22 00:00 98.4 F 58 L 18 140/65 100 Room Air 09/18/22 22:55 Room Air 09/18/22 21:00 Room Air 09/18/22 20:00 97 Room Air 09/18/22 19:52 98.0 F 92 H 18 135/71 94 L Room Air 09/18/22 18:53 Room Air 09/18/22 16:00 70 09/18/22 17:00 Room Air 09/18/22 15:48 97.5 F L 73 17 135/70 97 Room Air 09/18/22 15:00 Room Air Intake and Output 09/18/22 09/19/22 09/19/22 23:59 07:59 15:59 Intake Total 240 / 1330 660 / 660 Output Total 800 / 800 0 / 800 Balance 240 / 830 -800 / -140 660 / -140 Intake: Intake, Oral Amount 240 / 1320 660 / 660 Output: Output, Urine Amount 800 / 800 0 / 800 Other: Number of Voids 0 Number of Bowel Movements 1 1 Weight 91.399 kg Patient Weight 09/19/22 23:59 Weight 91.399 kg Laboratory Results - last 24 hr 09/19/22 06:26: Sodium 138, Potassium 3.7, Chloride 105, Carbon Dioxide 26, Anion Gap 10.7, BUN 28 H, Creatinine 1.00, Estimated Creat Clear 80, Estimated GFR 72, Est GFR ( Amer) 88, Glucose 93, Calcium 8.5, Total Bilirubin 0.9, AST 26 D, ALT 20, Alkaline Phosphatase 48, Total Protein 5.3 L, Albumin 3.0 L D, Globulin 2.3, Albumin/Globulin Ratio 1.3 I & O for Labs for Last 24 Hours: Intake & Output 09/16/22 09/17/22 09/18/22 09/19/22 23:59 23:59 23:59 23:59 Intake Total 430 / 500 790 / 1160 1330 / 1330 660 / 660 Output Total 1100 / 1600 1400 / 1400 0 / 500 800 / 800 Balance -670 / -1100 -610 / -240 1330 / 830 -140 / -140 Weight 99.79 kg 89.63 kg 90.582 kg 91.399 kg Constitutional: Present no acute distress, average body habitus and chronically ill appearing Head: Present atraumatic and normocephalic ENT: Present normal exam Respiratory: Present normal respiratory effort; Absent rhonchi, wheezes or crackles Cardiac: Present Irregularly Regular GI: Present normal bowel sounds; Absent tenderness Extremities: Present normal inspection and full ROM Skin: Present intact; Absent erythema Neuro: Present Grossly Intact, alert, awake and moves all extremities Comment:: Dysarthric. Oriented to self. Assessment and Plan *Assessment and plan (1) Non-ST elevation [place] (NSTEMI): Status: Acute Category: Medical Code(s): I21.4 - Non-ST elevation (NSTEMI) myocardial infarction (2) CHF (congestive heart failure): Status: Acute Qualifiers: Heart failure chronicity: acute on chronic Heart failure type: combined systolic and diastolic Qualified Code(s): I50.43 - Acute on chronic combined systolic (congestive) and diastolic (congestive) heart failure Category: Medical Code(s): I50.9 - Heart failure, unspecified (3) Constipation: Status: Acute Qualifiers: Constipation type: slow transit constipation Qualified Code(s): K59.01 - Slow transit constipation Category: Medical Code(s): K59.00 - Constipation, unspecified (4) A-fib: Status: Acute Qualifiers: Atrial fibrillation type: longstanding persistent Qualified Code(s): I48.11 - Longstanding persistent atrial fibrillation Category: Medical Cod
[2022-09-19 16:00] VITALS: BP 137/71; PULSE 66; RESP 16; TEMP 36.2; O2SAT 98
[2022-09-19 20:00] VITALS: BP 140/61; PULSE 69; PULSE 73; RESP 18; TEMP 36.3; O2SAT 96
--- NOTE | 2022-09-19 23:36 | PC.NURSE ---
Patient appears to be oriented. Due to old CVA patient has dysphasia. Understands and follows commands. Vital signs stable/afebrile. telemetry monitoring demonstrates afib, controlled rate. Has had an episode of Vtach. Bed alarm in use. No indications of pain. Male purewick in use.
[2022-09-20] VITALS: BP 133/73; PULSE 68; PULSE 75; RESP 18; TEMP 36.7; O2SAT 98
[2022-09-20 03:59] VITALS: PULSE 60
[2022-09-20 04:00] VITALS: BP 148/61; PULSE 64; RESP 18; TEMP 36.6; O2SAT 93; BMI 28.8
--- NOTE | 2022-09-20 04:25 | PC.NURSE ---
HAS HAD 1 RUN OF V-TACH THIS SHIFT, OTHERWISE AFIB CONTROLLED RATE WITH OCCASSIONAL PVC. VITAL SIGNS STABLE/AFEBRILE. NO C/O PAIN OR DISCOMFORT. OLD CVA WITH WEAKNESS RIGHT SIDE. HAS DYSPHASIA. FOLLOWS COMMANDS. ABLE TO SAY NAME ADEQUATELY. BED ALARM IN USE.
[2022-09-20 07:53] VITALS: O2SAT 99
[2022-09-20 08:00] VITALS: BP 125/82; PULSE 60; RESP 20; TEMP 35.8; O2SAT 99
--- NOTE | 2022-09-20 10:10 | PC.NURSE ---
Report called to Nayeli BUTCHER LPN. States they will not be able to take the patent until after lunch today at 12:30 or 13:00.
--- NOTE | 2022-09-20 10:33 | PC.NURSE ---
Daughter called to clam picker her father.
== END 2022-09-20 13:00 ==
LOC: ER 19:36 → 2ND 09-16 00:28
PROVIDERS: Internal Medicine Adolescent Medicine; Nurse Practitioner Critical Care Medicine; Admitting Provider Internal Medicine; Emergency Provider Emergency Medicine; Visit Provider Internal Medicine
DX: I21.4 Non-ST elevation (NSTEMI) myocardial infarction; E78.5 Hyperlipidemia, unspecified; I11.0 Hypertensive heart disease with heart failure; Z86.73 Personal history of transient ischemic attack (TIA), and cerebral infarction without residual deficits; I50.43 Acute on chronic combined systolic (congestive) and diastolic (congestive) heart failure; K59.01 Slow transit constipation; I48.11 Longstanding persistent atrial fibrillation; Z79.899 Other long term (current) drug therapy; Z79.01 Long term (current) use of anticoagulants; I69.328 Other speech and language deficits following cerebral infarction
CPT/HCPCS: 36415; 70450; 70496; 70498; 70551; 71045; 74177; 80048; 80053; 81001; 82009; 82550; 82803; 83605; 83690; 83735; 83880; 84443; 84484; 85025; 87040; 87086; 92507; 92523; 93005; 93306; 97110; 97163; 97166; 97530; 99285; G0378; Q9967